=== PATIENT | female | born 1940 | race Caucasian/White ===

== ENCOUNTER 2019-08-02 10:07 | Outpatient (CLI) | payer MEDICARE, OTHER, SELFPAY ==
--- NOTE | 2019-08-02 10:15 | USCV_ITS ---
Victoria Villa Age: 79 Gender: F : 1940 Exam Date: 08/02/2019 10:21 Ordering Phys: Tamara Dominguez MD ([email or web address]) Technologist: Angel Roth [place] [facility] [place]: STENOSIS Risk Factors: Previous Vascular Surgery: Right Brachial BP: / Left Brachial BP: / Right Left Velocity (cm/s) Spectral Plaque Velocity (cm/s) Spectral Plaque Syst/Diast Broadening Syst/Diast Broadening 63.50/ 20.60 Prox CCA 101.90/ 22.00 47.80/ 11.80 Mid CCA 83.20 / 20.80 46.50/ 9.30 Distal CCA 94.70 / 19.80 232.45/45.60 Prox ICA 113.70/ 20.40 185.15/27.40 Mid ICA 93.60 / 26.40 109.95/28.00 Distal ICA 104.20/ 18.50 224.10 ECA 179.90 4.87 ICA/CCA 1.37 Antegrade Vertebral Antegrade 40.80/ 10.60 cm/s 84.90/ 19.80 cm/s Tri Subclavian Tri 225.7 185.5 0 0 FINDINGS Moderate to heavy heterogeneous plaques at the right bifurcation and internal carotid artery Moderate heterogeneous plaques of the left bifurcation and internal carotid artery. Elevated velocity in the right external carotid artery Antegrade flow in the vertebral arteries bilaterally CONCLUSIONS Moderate to heavy heterogeneous plaques at the right bifurcation and internal carotid artery with velocity elevation consistent with 50-79% stenosis. Moderate heterogeneous plaques of the left bifurcation and internal carotid arterywith velocity elevation consistent with 16-49% stenosis. Elevated velocity in the external carotid artery on the right side, suggestive of hemodynamically significant stenosis. Compared to the previous study from July 2018, there is some worsening of the stenosis on the right side Consider CTA to better evaluate the neck arteries Dr Tamara Dominguez MD [facility] (Electronically Signed) Final Date: 03 August 2019 08:43 S
== END 2019-08-02 10:08 | disposition home or self-care (01) ==
LOC: US 10:08
PROVIDERS: PCP Family Medicine; Visit Provider Internal Medicine Cardiovascular Disease
DX: I65.23 Occlusion and stenosis of bilateral carotid arteries
CPT/HCPCS: 93880

== ENCOUNTER 2019-08-15 13:11 | Outpatient (CLI) | payer MEDICARE, OTHER, SELFPAY ==
[2019-08-15 13:53] LABS: Blood Urea Nitrogen 41 mg/dL (8-23)
== END 2019-08-15 13:12 | disposition home or self-care (01) ==
LOC: RADWPI 13:15
PROVIDERS: Family Provider Family Medicine; PCP Family Medicine; Visit Provider Internal Medicine Cardiovascular Disease
DX: I65.23 Occlusion and stenosis of bilateral carotid arteries (principal)
CPT/HCPCS: 82565; 84520

== ENCOUNTER 2020-01-22 08:24 | Outpatient (CLI) | payer MEDICARE, OTHER, SELFPAY ==
--- NOTE | 2020-01-22 08:30 | MM_ITS ---
WS: [id number] BILATERAL DIGITAL DIAGNOSTIC MAMMOGRAM MAMMOGRAPHY WITH CAD CLINICAL INFORMATION: N63.10 - Unspecified lump in the right breast, unspecified quadran COMPARISON: Mammogram screening and PET/CT January 06, 2020 TECHNIQUE: Bilateral CC, MLO, and ML views. FINDINGS: Scattered fibroglandular densities bilaterally. 2 ovoid lesions in the upper outer right breast and a single ovoid lesion left breast at the 12:00 position. These correspond to the findings in the prior PET/CT. Right-sided nodules FDG avid on the PET/CT. Ultrasound is pending. A few punctate calcificat ions. ULTRASOUND BREAST BILATERAL TECHNIQUE: Ultrasound bilateral breast focused area of concern. CLINICAL INFORMATION: N63.10 - Unspecified lump in the right breast, unspecified quadrant COMPARISON: None. FINDINGS: RIGHT: 2 solid lesions in the right breast, 1 at the 9:00 position and one at the 10:00 position suspicious for neoplasm. Irregular solid lesion at the 9:00 position 3 cm from the nipple measuring 1.0 x 0.6 0.7 cm Additional solid suspicious right breast lesion at 10:00 position 3 cm from the nipple measuring 1.5 x 0.7 x 1.2 cm Several cysts right breast. Complex cyst at the 9:00 position measuring 9.6 x 1.0 cm. Additional smal ler cyst measuring 7 mm at the 9:00 position. LEFT BREAST: Incidental cyst in the 12:00 position measuring 10 mm. Small hypoechoic lesion near the areola measur ing 4 x 5 mm nonspecific but may represent a small nodule or complex cyst. MM/[place] [id number] IMPRESSION: BI-RADS: 5-Highly Suggestive of Malignancy FOLLOW UP: US Guided Biopsy Recommended RECOMMEND ULTRASOUND-GUIDED BIOPSY OF THE 2 SOLID SUSPICIOUS RIGHT BREAST LESIO NS. RECOMMEND 6 MONTH FOLLOW-UP LEFT DIAGNOSTIC MAMMOGRAPHY AND ULTRASOUND OF THE T INY HYPOECHOIC LEFT BREAST LESION NEAR THE AREOLA MEASURING 4-5 MM
--- NOTE | 2020-01-22 09:00 | US_ITS ---
WS: [id number] BILATERAL DIGITAL DIAGNOSTIC MAMMOGRAM MAMMOGRAPHY WITH CAD CLINICAL INFORMATION: N63.10 - Unspecified lump in the right breast, unspecified quadran COMPARISON: Mammogram screening and PET/CT January 06, 2020 TECHNIQUE: Bilateral CC, MLO, and ML views. FINDINGS: Scattered fibroglandular densities bilaterally. 2 ovoid lesions in the upper outer right breast and a single ovoid lesion left breast at the 12:00 position. These correspond to the findings in the prior PET/CT. Right-sided nodules FDG avid on the PET/CT. Ultrasound is pending. A few punctate calcificat ions. ULTRASOUND BREAST BILATERAL TECHNIQUE: Ultrasound bilateral breast focused area of concern. CLINICAL INFORMATION: N63.10 - Unspecified lump in the right breast, unspecified quadrant COMPARISON: None. FINDINGS: RIGHT: 2 solid lesions in the right breast, 1 at the 9:00 position and one at the 10:00 position suspicious for neoplasm. Irregular solid lesion at the 9:00 position 3 cm from the nipple measuring 1.0 x 0.6 0.7 cm Additional solid suspicious right breast lesion at 10:00 position 3 cm from the nipple measuring 1.5 x 0.7 x 1.2 cm Several cysts right breast. Complex cyst at the 9:00 position measuring 9.6 x 1.0 cm. Additional smal ler cyst measuring 7 mm at the 9:00 position. LEFT BREAST: Incidental cyst in the 12:00 position measuring 10 mm. Small hypoechoic lesion near the areola measur ing 4 x 5 mm nonspecific but may represent a small nodule or complex cyst. US/US breast BI limited* [id number] IMPRESSION: BI-RADS: 5-Highly Suggestive of Malignancy FOLLOW UP: US Guided Biopsy Recommended RECOMMEND ULTRASOUND-GUIDED BIOPSY OF THE 2 SOLID SUSPICIOUS RIGHT BREAST LESIO NS. RECOMMEND 6 MONTH FOLLOW-UP LEFT DIAGNOSTIC MAMMOGRAPHY AND ULTRASOUND OF THE T INY HYPOECHOIC LEFT BREAST LESION NEAR THE AREOLA MEASURING 4-5 MM
== END 2020-01-22 08:25 | disposition home or self-care (01) ==
LOC: RADSHAW 08:27
PROVIDERS: Family Provider Family Medicine; PCP Family Medicine; Visit Provider Surgery
DX: N63.15 Unspecified lump in the right breast, overlapping quadrants (principal); N63.25 Unspecified lump in the left breast, overlapping quadrants
CPT/HCPCS: 76642; 77066

== ENCOUNTER 2020-01-23 07:09 | Outpatient (CLI) | payer MEDICARE, OTHER, SELFPAY ==
--- NOTE | 2020-01-23 08:45 | US_ITS ---
WS: [id number] ULTRASOUND-GUIDED RIGHT BREAST BIOPSY x 2 HISTORY: N63.10 - Unspecified lump in the right breast, unspecified quadrant COMPARISON: 01/22/2020 and 09/28/2007. Procedure, risks and complications are explained to the patient. Medications are reviewed. Consent is obtained. There are 2 suspicious masses in the RIGHT breast. These were PET/CT positive. First lesion at 10:00, 3 cm from the nipple. Second lesion at 9:00, 3 cm from the nipple. Skin is cleansed with ChloraPrep and anesthetized with 1% buffered lidocaine. Small dermatome termina te. Under sterile conditions each mass is biopsied with a 14-gauge Achieve needle. Multiple core biop sies were performed of the 10:00 mass. Only 2 biopsies performed of the 9:00 mass due to significant bleeding which was difficult to stop. After the bleeding the mass was very poorly visualized and diff icult to identify with certainty. Material placed in formalin and sent to pathology for review. Breast tissue marker (Bard ultrasound enhanced ribbon): Clip is LEFT within the lesion at 10:00. Unab le to identify the lesion at 9:00 after the bleeding. No clip was LEFT in the 9:00 lesion. Patient left the radiology suite with no complications. Patient is instructed to return to [facility] [place] [facility] or [facility] with any concerns. US/[place] [id number] IMPRESSION: 1. Uncomplicated core needle biopsy RIGHT breast 10:00 mass, 3 cm from the nip ple. PATHOLOGY: Mildly differentiated invasive ductal carcinoma, foamy gland variant . Additional ancillary studies will be performed. RECOMMENDATION: Follow-up with oncology and surgery. 2. Uncomplicated core needle biopsy RIGHT breast 9:00 mass, 3 cm from the nippl e. PATHOLOGY: Moderately differentiated invasive ductal carcinoma. Ancillary studi es will be performed. RECOMMENDATION: Follow-up with oncology and surgery.
[2020-01-29 13:08] LABS: Miscellaneous Test See Scanned Lab Rpt
== END 2020-01-23 07:10 | disposition home or self-care (01) ==
PROVIDERS: PCP Family Medicine; Visit Provider Surgery
DX: N63.11 Unspecified lump in the right breast, upper outer quadrant (principal); N63.15 Unspecified lump in the right breast, overlapping quadrants; C50.411 Malignant neoplasm of upper-outer quadrant of right female breast; C50.811 Malignant neoplasm of overlapping sites of right female breast
CPT/HCPCS: 19083; 19084; 88305

== ENCOUNTER 2020-01-30 10:01 | Outpatient (CLI) | payer MEDICARE, OTHER, SELFPAY ==
--- NOTE | 2020-02-01 11:23 | ONC CON_ITS ---
Dr. Scott New Patient Note Patient: Victoria Villa Unit #: [id number]: 1940 Dicatated By: Kim Scott M.D.Date of Visit: Jan 30, 2020 Onc MED New Patient/Consult Referring Physician: Dr. DOUG GARCIA M.D. History of Present Illness: Ms. Victoria Villa, is a 79-year-old female with history of progressive shortness of breath, Underwent chest x-ray which was abnormal So underwent CT scan of chest on December 29, 2019 which showed numerous bilateral pulmonary nodules with the largest identified in the left lower lobe measuring 1.5 cm and a large subcarinal lymph node measuring 2.3 x 4 cm and fullness in the superior mediastinum to the right of midline may represent adenopathy. And also seen a coarsely calcified left thyroid nodule measuring 2.5 x 3.0 x 2.9 cm no hepatic abnormality mentioned subsequently patient underwent CT PET scan on January 06, 2020 which showed 2 lateral right breast solid nodules measuring 1.2 and 1.3 cm with SUV up to 5.1 and there is bilateral clusters of lymph nodes in the cervical level 3 and 4 and supraclavicular territories with SUV up to 12.5 on the right and 10.8 on the left. There are multiple bilateral pulmonary nodules with FDG activity consistent with metastatic disease. The index nodule in the posterior left lower lobe measuring 1.4 cm SUV of 8.4. There is a paratracheal subaortic subcarinal and bilateral hilar lymphadenopathy and dominant lymph node in the subcarinal territory measuring 3.1 x 4.2 cm with SUV of 20. There is intense activity in the fundus and the body of stomach which may be physiological or malignant. And left thyroid lobe calcified nodule has SUV of 7.1, strongly suggesting malignancy., Patient was referred to surgery for evaluation patient underwent mammogram on January 22, 2020 which showed 2 solid lesions in the right breast, 1 at 9 o'clock position and another one at 10 o'clock position on January 23, 2020 she underwent ultrasound-guided right breast biopsy x2 and pathology report came back mass at 10 o'clock position showed moderately differentiated invasive ductal carcinoma and mass at 9 o'clock position also showed moderately differentiated invasive ductal carcinoma prognostic profile???confirmed ER positive, 99% and MO negative, HER-2/bin negative. Ki-67 4% Patient never had colonoscopy or EGD before, smokes about 2 packs a day for more than 50 years. Denies any history of dysphagia, denies any history of hemoptysis or hematemesis, denies any history of nausea vomiting, denies any fever chills, denies any bony pains, denies any mental status changes, denies any weight loss but now with progressive mild to moderate shortness of breath on exertion, fatigue for the last couple of months. Past Medical History: Ms. Villa's medical history consists of arteriosclerotic heart disease, carotid stenosis, chronic kidney disease, hyperlipidemia, obstructive sleep apnea, peripheral artery disease, and type II diabetes. Past Surgical History: Ms. Villa's surgical/procedural history consists of cholecystectomy, coronary artery stent, and hernia repair. Medications: Aspirin Adult Low Dose 1 Tablet (of 81 mg) Tablet, enteric coated Oral daily, Cholecalciferol (25 mcg ) Oral daily, Fenofibrate 1 Tablet (of 54 mg) Oral daily, Flonase 1 Vining(s) (of 50 mcg/act) Suspension Nasal daily, Glimepiride 1 Tablet (of 1 mg) Oral daily, Lisinopril 1 Tablet (of 10 mg) Oral daily, Metoprolol Tartrate 1 Tablet (of 25 mg) Oral b.i.d., Simvastatin 1 Tablet (of 40 mg) Oral daily Allergies: Penicillins Social History: Ms. Villa is . She is a daily smoker who smokes 2.0 packs/day. She has no history of drinking. Family History: Ms. Villa's mother at age 75: colon cancer. Ms. Villa's father at age 74: type II diabetes. Review Of Symptoms: Constitutional - Appetite is good and weight is stable. No fever, night sweats, or hot flashes. Energy level is poor, ENMT - No sinus congestion/drainage. No mouth sores. No sore throat or difficulty swallowing, Endocrine - , Hematologic/Lymphatic - No abnormal bruising or bleeding, Respiratory - Positive for shortness of breath. Positive for cough. Positive for pleuritic pain, no hemoptysis, Cardiovascular - No angina pain. No palpitations, Gastrointestinal - No nausea or vomiting. No heartburn or acid reflux. Positive for diarrhea, no constipation. No blood in the stool or black stools, Genitourinary (F) - No dysuria or hematuria. No urinary frequency. No urgency Positive for incontinence, Musculoskeletal - No joint or bone pain, Neurologic - Positive for headache no dizziness. No numbness or tingling. No other focal neurologic symptoms, Psychiatric - Positive for anxiety and depression. No insomnia. Vital Signs: Most recent vitals are not available for this patient. Performance Status: 1 - No physically strenuous activity, but ambulatory and able to carry out light or sedentary work (e.g. office work, light house work). (ECOG) Physical Examination: ENMT - No mouth sores, no thrush, no jaundice bilateral deep cervical/supraclavicular lymph node palpable, nontender, but no axillary lymphadenopathy, Respiratory - Poor air entry, with mild wheezing, Cardiovascular - Regular rate and rhythm of heart, Abdomen - Soft, bowel sounds present, Extremities - Trace edema bilaterally. Lab/Imaging: Most recent lab results are not available for this patient. Impression: 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 And coarsely calcified left thyroid nodule measuring 2.5 x 3 cm and no hepatic abnormality mentioned CT PET scan done on January 06, 2020 showed FDG positive right breast nodules Intense proximal gastric activity, gastric wall thickening could be physiologic further evaluation recommended Bilateral FDG positive cervical and supraclavicular lymph nodes consistent with metastatic disease Calcified left thyroid nodule is FDG positive likely malignant Bilateral malignant pulmonary nodules Extensive malignant mediastinal lymphadenopathy. Longstanding history of smoking 2 packs a day for more than 50 years, still active History of colonoscopy done in 2017, History of arterial bypass of lower limb. History of coronary artery disease status post stent Plan: Discussed with patient regarding her disease status and CT scan of chest and CT PET scan findings, clinically it appears we are dealing with more than one primaries, as right breast cancer has been confirmed with ultrasound right breast biopsy done on January 23, 2020 with the PET scan shows no right axillary lymphadenopathy, metastatic disease from right breast is less likely but cannot be ruled out, prognostic profiling shows strongly ER positive disease but MO negative and HER-2/bin negative and other concern is FDG positive thyroid nodule and bilateral cervical/supraclavicular lymphadenopathy and extensive bilateral pulmonary nodules along with significant mediastinal lymphadenopathy, so at this point , we will refer her to ENT for thyroid nodule FNA and cervical or supraclavicular lymph node biopsy and also refer her to pulmonology for transbronchial biopsy and then reviewed the pathology if it confirm metastatic breast cancer then will consider palliative hormonal therapy on the other hand if it confirm metastatic thyroid malignancy or other malignancy then will plan accordingly. Discussed with patient in detail and she expressed full understanding and we will see her back after ENT and pulmonary evaluation Patient was advised to quit smoking and was offered any assistance she may need. As far as diagnosis related anxiety is concerned,, patient was reassured and will also consider Ativan on as-needed basis. Patient has chronic cough and she is attributing this to her chronic smoking but patient is on lisinopril for many years, she was advised to discuss with PMD regarding if it is LYDIA inhibitor related chronic cough, Signed By: Kmi Scott M.D. <<Signature on File>>
== END 2020-01-30 10:02 | disposition home or self-care (01) ==
LOC: ONCMED 10:04
PROVIDERS: PCP Family Medicine; Visit Provider Internal Medicine Hematology & Oncology
DX: C50.411 Malignant neoplasm of upper-outer quadrant of right female breast (principal); Z17.0 Estrogen receptor positive status [ER+]; R91.8 Other nonspecific abnormal finding of lung field; E04.1 Nontoxic single thyroid nodule; R59.0 Localized enlarged lymph nodes; R05 Cough; I25.10 Atherosclerotic heart disease of native coronary artery without angina pectoris; F17.210 Nicotine dependence, cigarettes, uncomplicated; Z95.5 Presence of coronary angioplasty implant and graft; Z79.899 Other long term (current) drug therapy
CPT/HCPCS: 99203

== ENCOUNTER 2020-02-12 10:53 | Outpatient (CLI) | payer MEDICARE, OTHER, SELFPAY ==
--- NOTE | 2020-02-12 11:00 | USCV_ITS ---
Victoria Villa Age: 79 Gender: F : 1940 Exam Date: 02/12/2020 11:11 Ordering Phys: Tamara Dominguez MD ([email or web address]) Technologist: Nicole Agarwal [place] [facility] [place] F/U CAROTID [place] Risk Factors: Previous Vascular Surgery: Right Brachial BP: / Left Brachial BP: / Right Left Velocity (cm/s) Spectral Plaque Velocity (cm/s) Spectral Plaque Syst/Diast Broadening Syst/Diast Broadening 76.00/ 17.10 Prox CCA 123.40/ 19.10 82.00/ 12.80 Mid CCA 122.30/ 22.30 67.50/ 14.50 Distal CCA 101.20/ 21.00 264.10/77.70 Prox ICA 132.10/ 24.90 216.50/33.10 Mid ICA 117.50/ 33.60 82.80/ 22.30 Distal ICA 126.10/ 24.90 244.10 ECA 229.20 3.22 ICA/CCA 1.07 Antegrade Vertebral Antegrade 41.00/ 14.50 cm/s 93.60/ 22.90 cm/s Tri Subclavian Tri 170.4 230.3 0 0 FINDINGS Moderate to heavy heterogeneous plaques of the right bifurcation and internal carotid artery Moderate to heavy heterogeneous plaques of the left bifurcation and internal carotid artery Antegrade flow in the vertebral arteries bilaterally Elevated velocities in the external carotid arteries bilaterally Abnormal Doppler waveforms in the right vertebral artery CONCLUSIONS Moderate to heavy heterogeneous plaques at the carotid bifurcations and internal carotid arteries bilaterally, suggestive of 50 to 79% stenosis. Elevated velocities in the external carotid arteries bilaterally, suggestive of hemodynamically significant stenosis. Abnormal Doppler waveforms in the right vertebral artery, may suggest high-grade proximal stenosis in the artery Consider CTA, to better evaluate the arch vessels Compared to the study from 08/02/2019, there is some progression of disease on the left side Dr Tamara Dominguez MD [facility] (Electronically Signed) Final Date: 13 February 2020 09:40 S
== END 2020-02-12 10:54 | disposition home or self-care (01) ==
LOC: US 10:54
PROVIDERS: PCP Family Medicine; Visit Provider Internal Medicine Cardiovascular Disease
DX: I65.23 Occlusion and stenosis of bilateral carotid arteries (principal)
CPT/HCPCS: 93880

== ENCOUNTER → 2020-03-01 10:39 | Outpatient (BNVA) | payer MEDICARE, OTHER, SELFPAY | PROVIDERS: PCP Family Medicine; Visit Provider Internal Medicine Pulmonary Disease | DX: R06.02 Shortness of breath (principal) | CPT/HCPCS: 87635 ==

== ENCOUNTER 2020-03-06 13:04 | Outpatient (CLI) | payer MEDICARE, OTHER, SELFPAY ==
--- NOTE | 2020-03-06 14:24 | PFTS_ITS ---
Date of Study:03/06/2020 Date of Dictation: 03/18/2020 MECHANICS: Forced vital capacity (FVC) is normal. Forced expiratory volume in one second (FEV1) is normal. FEV1/FVC is reduced. There is no significant response to bronchodilators. FLOW VOLUME LOOP: Scooping of end expiratory limb suggestive of airway obstruction . LUNG VOLUMES: Total lung capacity (TLC) is reduced. Residual volume (RV) is severely reduced 14%. DIFFUSING CAPACITY FOR CARBON MONOXIDE: Moderately reduced 56% . INTERPRETATION: The spirometry is suggestive of mild obstructive airway disease. Lung volumes are significantly reduced suggestive of severe restriction. Moderately reduced gas transfer. Please correlate clinically MTDD
[2020-03-06 15:10] VITALS: O2SAT 91; O2SAT 93
--- NOTE | 2020-03-06 15:33 | PFTS_ITS ---
Date of Study:03/06/20 Date of Dictation: MECHANICS: Forced vital capacity (FVC) is . Forced expiratory volume in one second (FEV1) is . FEV1/FVC is . FLOW VOLUME LOOP: . LUNG VOLUMES: Total lung capacity (TLC) is . Residual volume (RV) is . DIFFUSING CAPACITY FOR CARBON MONOXIDE: . INTERPRETATION: The pulmonary function tests are . mechanics and lung volumes. Gas exchange (DLCO) is . MTDD
== END 2020-03-06 13:05 | disposition home or self-care (01) ==
LOC: RT 13:07
PROVIDERS: PCP Family Medicine; Visit Provider Internal Medicine Pulmonary Disease
DX: R06.02 Shortness of breath (principal)
CPT/HCPCS: 94060; 94726; 94729; J7611

== ENCOUNTER 2020-03-08 08:18 | Outpatient (CLI) | payer MEDICARE, OTHER, SELFPAY ==
[2020-03-08 09:15] LABS: Basophils # 0.1 10^3/uL (0.0-0.1); Eosinophils # 0.2 10^3/uL (0.0-0.8); Eosinophils % 2.4 %; Hematocrit 28.6 % (37.0-47.0); Hemoglobin 9.1 g/dL (11.5-15.3); Lymphocytes # 1.3 10^3/uL (0.8-4.8); Lymphocytes % 15.5 %; Mean Corpuscular HGB Conc 31.8 g/dL (30.0-36.0); Mean Corpuscular Hemoglobin 33.2 pg (28.0-34.0); Mean Corpuscular Volume 104.4 fL (81-99); Mean Platelet Volume 9.8 fL (7.4-10.4); Monocytes # 0.5 10^3/uL (0.2-0.9); Monocytes % 6.3 %; Neutrophils # 6.24 10^3/uL (1.8-7.7); Neutrophils % 74.4 %; Nucleated Red Blood Cells % 0 %; Platelet Count 431 10^3/cmm (130-400); Red Blood Count 2.74 10^6/uL (4.1-5.3); Red Cell Distribution Width 14.2 % (12.1-15.1); White Blood Count 8.4 10^3/uL (4.0-10.0)
[2020-03-08 09:35] LABS: Alanine Aminotransferase 6 U/L (0-33); Albumin Level 3.7 g/dL (3.5-5.2); Alkaline Phosphatase 68 IU/L (35-105); Anion Gap 13.2 (5-19); Aspartate Amino Transferase 12 U/L (0-32); Blood Urea Nitrogen 16 mg/dL (8-23); Calcium 8.7 mg/dL (8.5-10.5); Carbon Dioxide 26 mmol/L (22-29); Chloride 100 mmol/L (98-107); Glucose 109 mg/dL (65-115); Osmolality Calculated 282 mOsm/kg (285-295); Potassium 4.2 mmol/L (3.5-5.1); Sodium 135 mmol/L (136-145); Total Bilirubin 0.2 mg/dL (0.15-1.2); Total Protein 6.7 g/dL (6.6-8.7)
== END 2020-03-08 08:19 | disposition home or self-care (01) ==
LOC: ONCMED 08:20
PROVIDERS: PCP Family Medicine; Visit Provider Internal Medicine Hematology & Oncology
DX: C50.411 Malignant neoplasm of upper-outer quadrant of right female breast (principal); Z17.0 Estrogen receptor positive status [ER+]
CPT/HCPCS: 80053; 85025

== ENCOUNTER 2020-03-12 05:49 | Outpatient (CLI) | payer MEDICARE, OTHER, SELFPAY ==
[2020-03-12 10:50] LABS: Ferritin 50 ng/mL (15-150); Iron 30 ug/dL (37-145); Percent Saturation 9.4 % (20-50); Total Iron Binding Capacity 319 mcg/dl; Unsaturated Iron Binding 289 ug/dL (112-347)
[2020-03-12 11:06] LABS: Vitamin B12 421 pg/mL (232-1245)
--- NOTE | 2020-03-12 16:12 | ONC FU_ITS ---
Dr. Scott follow up note Patient: Victoria Villa Unit #: [id number]: [id number] Dicatated By: Kim Scott M.D.Date of Visit:Mar 12, 2020 Onc Med Follow-up/Prog Note History of Present Illness: Ms. Victoria Villa, is a 79-year-old female with history of progressive shortness of breath, Underwent chest x-ray which was abnormal So underwent CT scan of chest on December 29, 2019 which showed numerous bilateral pulmonary nodules with the largest identified in the left lower lobe measuring 1.5 cm and a large subcarinal lymph node measuring 2.3 x 4 cm and fullness in the superior mediastinum to the right of midline may represent adenopathy. And also seen a coarsely calcified left thyroid nodule measuring 2.5 x 3.0 x 2.9 cm no hepatic abnormality mentioned subsequently patient underwent CT PET scan on January 06, 2020 which showed 2 lateral right breast solid nodules measuring 1.2 and 1.3 cm with SUV up to 5.1 and there is bilateral clusters of lymph nodes in the cervical level 3 and 4 and supraclavicular territories with SUV up to 12.5 on the right and 10.8 on the left. There are multiple bilateral pulmonary nodules with FDG activity consistent with metastatic disease. The index nodule in the posterior left lower lobe measuring 1.4 cm SUV of 8.4. There is a paratracheal subaortic subcarinal and bilateral hilar lymphadenopathy and dominant lymph node in the subcarinal territory measuring 3.1 x 4.2 cm with SUV of 20. There is intense activity in the fundus and the body of stomach which may be physiological or malignant. And left thyroid lobe calcified nodule has SUV of 7.1, strongly suggesting malignancy., Patient was referred to surgery for evaluation patient underwent mammogram on January 22, 2020 which showed 2 solid lesions in the right breast, 1 at 9 o'clock position and another one at 10 o'clock position on January 23, 2020 she underwent ultrasound-guided right breast biopsy x2 and pathology report came back mass at 10 o'clock position showed moderately differentiated invasive ductal carcinoma and mass at 9 o'clock position also showed moderately differentiated invasive ductal carcinoma prognostic profile???confirmed ER positive, 99% and MS negative, HER-2/bin negative. Ki-67 4% Patient never had colonoscopy or EGD before, smokes about 2 packs a day for more than 50 years. Denies any history of dysphagia, denies any history of hemoptysis or hematemesis, denies any history of nausea vomiting, denies any fever chills, denies any bony pains, denies any mental status changes, denies any weight loss but now with progressive mild to moderate shortness of breath on exertion, fatigue for the last couple of months. As well CT PET scan showed increased uptake in thyroid as well as extensive bilateral cervical lymphadenopathy/supraclavicular lymphadenopathy, bilateral pulmonary nodules with FDG activity and paratracheal subaortic and bilateral hilar lymphadenopathy and left thyroid lobe calcified nodule with SUV of 7.1, she was referred to ENT Dr. 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 Came for follow-up, complaining of generalized weakness and fatigue otherwise no hemoptysis or hematemesis, no dysphagia, no hemoptysis or hematemesis, no fever chills, no diarrhea or constipation, no jaundice, no headaches blurred vision double vision. As per patient she underwent FNA of thyroid as well as left supraclavicular lymph node but Dr. Hutchinson's office said only FNA thyroid was done, could not contact Dr. Hutchinson as he was in OR today. She was also referred to pulmonology for bronchoscopy and transbronchial biopsy by Dr. Friedman wanted to review FNA thyroid and supra clavicular lymph node reports as if taken from metastatic breast cancer then there is no need for transbronchial. Medications: 24HR Allergy Relief 1 Tablet (of 180 mg) Oral daily PRN, Aspirin Adult Low Dose 1 Tablet (of 81 mg) Tablet, enteric coated Oral daily, Cholecalciferol (25 mcg ) Oral daily, Fenofibrate 1 Tablet (of 54 mg) Oral daily, Flonase 1 [place](s) (of 50 mcg/act) Suspension Nasal daily, Glimepiride 1 Tablet (of 1 mg) Oral daily, Lisinopril 1 Tablet (of 20 mg) Oral daily, Metoprolol Tartrate 1 Tablet (of 25 mg) Oral b.i.d., Simvastatin 1 Tablet (of 40 mg) Oral daily Allergies: Penicillins Review of Systems: Constitutional - Appetite is good and weight is stable. No fever, night sweats, or hot flashes. Energy level is poor, ENMT - No sinus congestion/drainage. No mouth sores. No sore throat or difficulty swallowing, Hematologic/Lymphatic - No abnormal bruising or bleeding, Respiratory - Positive for shortness of breath. Positive for cough. Positive for pleuritic pain, no hemoptysis, Cardiovascular - No angina pain. No palpitations, Gastrointestinal - No nausea or vomiting. No heartburn or acid reflux. Positive for diarrhea, no constipation. No blood in the stool or black stools, Genitourinary (F) - No dysuria or hematuria. No urinary frequency. No urgency Positive for incontinence, Musculoskeletal - No joint or bone pain, Neurologic - Positive for headache no dizziness. No numbness or tingling. No other focal neurologic symptoms, Psychiatric - Positive for anxiety and depression. No insomnia. Vital Signs: Performed on Mar 12, 2020 09:05 Height - 64 in Weight - 170.2 lbs (HIGH) BSA - 1.83 sq.m BMI - 29.21 Temperature - 98.4 F Pulse - 94 /min Respiration - 16 /min BP - 109/61 mm(hg) O2 Sat - 100 % Pain - 3 Performance Status: 1 - No physically strenuous activity, but ambulatory and able to carry out light or sedentary work (e.g. office work, light house work). (ECOG) Physical Examination: Respiratory - Lungs are clear to auscultation, Cardiovascular - Regular rate and rhythm of heart, Gastrointestinal - Soft, bowel sounds present, Extremities - No visible edema. Lab/Imaging: Most recent lab results are not available for this patient. 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 And coarsely calcified left thyroid nodule measuring 2.5 x 3 cm and no hepatic abnormality mentioned CT PET scan done on January 06, 2020 showed FDG positive right breast nodules Intense proximal gastric activity, gastric wall thickening could be physiologic further evaluation recommended Bilateral FDG positive cervical and supraclavicular lymph nodes consistent with metastatic disease Calcified left thyroid nodule is FDG positive likely malignant Bilateral malignant pulmonary nodules Extensive malignant mediastinal lymphadenopathy. Longstanding history of smoking 2 packs a day for more than 50 years, still active History of colonoscopy done in 2017, History of arterial bypass of lower limb. History of coronary artery disease status post stent Plan: Discussed with patient regarding her labs white blood count 8.4 hemoglobin 9.1 hematocrit 28.6 platelets 431,000 CMP within normal limits and for FNA thyroid which was done on February 23, 2020 Clinically, patient doing reasonably well with no new signs symptom except persistent generalized weakness and fatigue which could be multifactorial including mild to moderate anemia or extensive malignancy, will check iron studies B12 folic acid level today and also discussed with Dr. Hutchinson regarding FNA supraclavicular lymph node, if is not done in that case we will prefer lymph node biopsy rather FNA to obtain generous tissue for proper testing to confirm metastatic breast cancer versus second or other primary. Patient will return to clinic in 2 weeks with CBC. Signed By: Kim Scott M.D. <<Signature on File>>
== END 2020-03-12 05:50 | disposition home or self-care (01) ==
LOC: ONCMED 05:52
PROVIDERS: PCP Family Medicine; Visit Provider Internal Medicine Hematology & Oncology
DX: C50.411 Malignant neoplasm of upper-outer quadrant of right female breast (principal); C78.02 Secondary malignant neoplasm of left lung; C78.01 Secondary malignant neoplasm of right lung; C77.1 Secondary and unspecified malignant neoplasm of intrathoracic lymph nodes; R59.0 Localized enlarged lymph nodes; R53.1 Weakness; R53.83 Other fatigue; E04.1 Nontoxic single thyroid nodule; I25.10 Atherosclerotic heart disease of native coronary artery without angina pectoris; Z17.0 Estrogen receptor positive status [ER+]; Z95.5 Presence of coronary angioplasty implant and graft; Z87.891 Personal history of nicotine dependence
CPT/HCPCS: 36415; 82607; 82728; 83540; 83550; 85045; 99214

== ENCOUNTER 2020-04-11 09:55 | Outpatient (CLI) | payer MEDICARE, OTHER, SELFPAY ==
--- NOTE | 2020-04-11 09:57 | NM_ITS ---
WS: [id number] NUCLEAR MEDICINE 24 HOUR I-123 THYROID UPTAKE INDICATION: Single thyroid nodule nontoxic TECHNIQUE: I-123 24 HOUR THYROID UPTAKE WITH PLANAR IMAGING. 120 UCI ANTONI 123 COMPARISON: PET/CT January 06, 2020 FINDINGS: Densely calcified a few reactive left thyroid nodule seen on the prior PET/CT. Reported rec ent thyroid biopsy was performed and negative for malignancy. Slightly heterogeneous bilateral thyroid uptake on the planar imaging. Cold defect in the left thyroi d on the CUBAN imaging likely corresponds to the densely calcified nodule in the prior PET/CT. No other focal hot or cold defects. 24-hour thyroid uptake 21.3% within normal limits. NORMAL 24H THRYOID UPTAKE 8-35% NM/NM thyroid uptake multi [id number] IMPRESSION: 1. Normal 24-hour thyroid uptake 21.3% within normal limits. 2. Focal cold defect in the left thyroid likely corresponds to the densely ousmane cified thyroid nodule seen on the prior PET/CT. This has reportedly been recent ly sampled. If not, recommend further evaluation with ultrasound-guided FNA. 3. No other significant findings.
== END 2020-04-11 09:56 | disposition home or self-care (01) ==
LOC: NM 09:55
PROVIDERS: PCP Family Medicine; Visit Provider Specialist
DX: E04.1 Nontoxic single thyroid nodule (principal)
CPT/HCPCS: 78014; A9516

== ENCOUNTER 2020-04-12 09:45 | Outpatient (CLI) | payer MEDICARE, OTHER, SELFPAY | END 2020-04-12 09:46 | disposition home or self-care (01) | LOC: NM 09:47 | PROVIDERS: PCP Family Medicine; Visit Provider Specialist | DX: R59.0 Localized enlarged lymph nodes (principal) | CPT/HCPCS: 87635 ==

== ENCOUNTER 2020-04-15 11:35 | Outpatient (CLI) | payer MEDICARE, OTHER, SELFPAY ==
[2020-04-15 12:17] LABS: Basophils # 0.1 10^3/uL (0.0-0.1); Basophils % 0.9 %; Eosinophils # 0.2 10^3/uL (0.0-0.8); Eosinophils % 2.8 %; Hematocrit 30.3 % (37.0-47.0); Hemoglobin 9.6 g/dL (11.5-15.3); Lymphocytes # 1.2 10^3/uL (0.8-4.8); Lymphocytes % 16.5 %; Mean Corpuscular HGB Conc 31.7 g/dL (30.0-36.0); Mean Corpuscular Hemoglobin 32.3 pg (28.0-34.0); Mean Platelet Volume 9.9 fL (7.4-10.4); Monocytes # 0.5 10^3/uL (0.2-0.9); Monocytes % 7.1 %; Neutrophils # 5.43 10^3/uL (1.8-7.7); Neutrophils % 72.4 %; Nucleated Red Blood Cells % 0.3 %; Platelet Count 334 10^3/cmm (130-400); Red Blood Count 2.97 10^6/uL (4.1-5.3); Red Cell Distribution Width 14.3 % (12.1-15.1); White Blood Count 7.5 10^3/uL (4.0-10.0)
[2020-04-15 12:35] LABS: Alanine Aminotransferase 6 U/L (0-33); Albumin Level 3.3 g/dL (3.5-5.2); Alkaline Phosphatase 67 IU/L (35-105); Anion Gap 16.7 (5-19); Aspartate Amino Transferase 12 U/L (0-32); Blood Urea Nitrogen 11 mg/dL (8-23); Calcium 8.6 mg/dL (8.5-10.5); Carbon Dioxide 21 mmol/L (22-29); Chloride 95 mmol/L (98-107); Globulin 3.1 g/dL (1.3-4.6); Glucose 159 mg/dL (65-115); Osmolality Calculated 271 mOsm/kg (285-295); Potassium 3.7 mmol/L (3.5-5.1); Sodium 129 mmol/L (136-145); Total Bilirubin 0.2 mg/dL (0.15-1.2); Total Protein 6.4 g/dL (6.6-8.7)
== END 2020-04-15 11:36 | disposition home or self-care (01) ==
LOC: ONCMED 11:38
PROVIDERS: PCP Family Medicine; Visit Provider Internal Medicine Hematology & Oncology
DX: C50.411 Malignant neoplasm of upper-outer quadrant of right female breast (principal); Z17.0 Estrogen receptor positive status [ER+]
CPT/HCPCS: 80053; 85025

== ENCOUNTER 2020-04-16 05:57 | Day surgery (SDC) | payer MEDICARE, OTHER, SELFPAY ==
[2020-04-15 13:12] VITALS: BMI 27.3
[2020-04-16] VITALS (8 sets, daily range): BP systolic 112–162; BP diastolic 64–85; PULSE 87–106; RESP 14–18; TEMP 36.4–36.7; O2SAT 93–99
--- NOTE | 2020-04-16 06:25 | ANES.PREANE2 ---
Pre-Anesthetic Assessment Pre-Anesthetic Assessment: Height/Weight: Height 1.7 m Weight 79.379 kg Temp Pulse Resp BP Pulse Ox 98 F 87 18 131/64 95 04/16/20 06:13 04/16/20 06:13 04/16/20 06:13 04/16/20 06:13 04/16/20 06:13 Preop Diagnosis: Neck mass Proposed Procedure: Operation Date: 04/16/20 07:00 Proposed Procedures p Excision Neck Mass/Lesion(Not Applicable) - Kemar Hutchinson MD Familial anesthetic complications: Hard to wake up (sleepy after cataract surgery) Was Beta Dahiana taken within 24 hours: Yes Last intake: Intake Last Liquid Date 04/15/20 Last Liquid Time 19:00 Last Solid Date 04/15/20 Last Solid Time 19:00 Social: Social History: Tobacco and No alcohol Exam: Pre-Anes Outpt Exam: alert, oriented x 3, clear to auscultation bilaterally and regular rate & rhythm Airway: Cervical ROM: WNL MP: 4 Dentition: Other (plates) Pulmonary: Pulmonary: COPD, Sleep apnea and SOB CV/HEM: CV/HEM: CAD (stents placed > 1 year ago on aspirin only, no recent chest pains), HTN and PVD : : Chronic renal failuer (stage IV kidney disease) GI: GI: GERD Metabolic: Metabolic: DM and Hyperlipidemia Anesthetic Plan: ASA status: 4 Anesthesia: General Risk of > 500 ml blood loss (7ml/kg in children): No PFSH Anesthesia PFSH: Medical History Abuse of smoked substance ASHD (arteriosclerotic heart disease) Carotid stenosis Chronic kidney disease Diabetes mellitus Essential hypertension Mixed hyperlipidemia DENITA (obstructive sleep apnea) PAD (peripheral artery disease) Surgical History H/O arterial bypass of lower limb H/O colonoscopy 2017 History of ankle surgery fracture repair with hardware History of cholecystectomy History of incisional hernia repair Stented coronary artery Family History Father Bleeding disorder Diabetes Mother Cancer colon and aunt had colon too Other Congestive heart failure Denies family history of Anesthesia complication Social History (Reviewed 02/26/20 @ 15:03 by BASILIO Latham Smoking and tobacco status: current every day smoker cigarettes Packs smoked per day: 2 Years cigarettes smoked: 50 Quit status (tobacco): not considering quitting Second hand smoke exposure: No Smoking risk assessment/counseling performed?: Yes Alcohol intake: never Lives independently: Yes Household members: none Marital status: Single Current occupational status: retired Pets and animals: Yes History of recent travel: No Current gender identity: Female Data Anesthesia Cardiac Studies: No Data to Display
[2020-04-16] MEDS: sodium chloride 0.9% 1,000 ML 30 ML IV (06:30)
[2020-04-16 06:45] LABS: Glucose Point of Care 110 mg/dL (70-110)
--- NOTE | 2020-04-16 06:47 | W.PM.OPSUD ---
Surgery/Procedure H&P Update DATE OF PROCEDURE: April 16, 2020 DATE H&P PERFORMED: 03/25/20 H&P UPDATE INFORMATION: I have reviewed H&P completed within last 30 days, I have examined patient prior to procedure and No changes to prior documentation PREOP DIAGNOSIS: Right Neck mass PRIMARY INDICATION FOR PROCEDURE: Right neck mass - r/o malignancy PLANNED PROCEDURE: Operation Date: 04/16/20 07:00 Proposed Procedures p Excision Neck Mass/Lesion(Not Applicable) - Kemar Hutchinson MD
[2020-04-16] MEDS: clindamycin 600 MG/50 ML PREMIX 100 MG IV (07:30)
[2020-04-16] MEDS: thrombin 5,000 unit SDV 5000 UNIT XX (08:22)
[2020-04-16] MEDS: neomycin-poly-bacitracin oint 28 gm 1 APPLIC TOPICAL (08:31)
--- NOTE | 2020-04-16 08:50 | P.OP_ITS ---
Operative Report Date of procedure: April 16, 2020 Pre-op Diagnosis: Right Neck mass Post-op diagnosis: same Post-op Findings: Matted right supraclavicular mass two fingerbreadths lateral to the clavicular attachment of the sternocleidomastoid muscle Procedure Done: Incisional biopsy of right supraclavicular neck mass Implants: None Specimens removed/disposition: Right supraclavicular neck mass Pathology: none sent Surgeon: Kemar Hutchinson Animal Eviscerator: Marvin Giraldo Anesthesia: General Estimated blood loss (mL): 20 IV fluids (mL): 700 Complications: None Findings: Multiple, hard, matted lymph nodes in the right supraclavicular neck 2 fingerbreadths lateral to the clavicular attachment of the sternocleidomastoid muscle Condition: stable Disposition: PACU Brief History: 79 yo wf with a h/o breast cancer with a right supraclavicular neck mass. The patient and Dr. Scott desire surgical biopsy. Procedure: The patient was identified the preoperative holding area and was taken to the operating room where she was placed on the operating table in the supine position. Anesthesia was obtained with general endotracheal anesthesia and the table was then turned 180 degrees. The Nirvana nerve monitoring system was placed on the patient's right trapezius. The mass was identified in the right supra clavicular neck lateral to the sternocleidomastoid muscle, and an incision was drawn out in a convenient skin crease overlying the mass. This incision was then injected with local anesthesia and the patient was then prepped and draped in the usual sterile fashion. The right neck incision was made with a 15 blade and then using the Nirvana nerve monitoring hemostat, the dissection proceeded into the deep tissues of the neck guided by palpation. The mass was identified on the floor of the neck and was dissected free from the surrounding tissues using the Nirvana nerve monitoring hemostat and bipolar cautery. Hemostasis was achieved with bipolar cautery. Once the mass was excised, hemostasis was achieved with bipolar cautery and Gelfoam soaked in thrombin was placed in the depth of the wound. The outer portion of the wound was dusted with Negro powder, and a small round DERREK drain was placed in the wound and secured in place with 3-0 Prolene sutures. The wound was then closed with interrupted 4-0 Monocryl sutures in the subcu and a running subcuticular 5- 0 Monocryl suture. Final closure was achieved with Dermabond and Steri-Strips. At this point, the procedure was terminated and control of the patient was returned to anesthesia where she underwent an uneventful reversal of anesthesia and extubation and was taken to the recovery room stable condition. There were no operative or anesthetic complications.
[2020-04-16] MEDS: ondansetron 2 mg/ML SDV 2 mL 4 MG IVP (09:31)
--- NOTE | 2020-04-16 21:30 | ANE.PACU2 ---
Inpatient post-anesthesia follow up: Airway intact: Yes Vital signs: Temperature 98.1 F Pulse Rate 96 Respiratory Rate 16 Blood Pressure 112/85 Pulse Oximetry 97 Oxygen Delivery Me thod Nasal Cannula Oxygen Flow Rate 2 Fraction of Inspir ed Oxygen Hydration adequate: Yes Nausea and vomiting: No Pain level: 2 Mental status: Baseline
[2020-04-23 09:57] LABS: PD-L1 (Clone 22C3) by IHC BBPL See Report
== END 2020-04-16 10:26 | disposition home or self-care (01) ==
PROVIDERS: PCP Family Medicine; Visit Provider Specialist
PROC: (CPT 21555; principal; 2020-04-16 07:00)
DX: C76.0 Malignant neoplasm of head, face and neck (principal); E11.22 Type 2 diabetes mellitus with diabetic chronic kidney disease; I12.9 Hypertensive chronic kidney disease with stage 1 through stage 4 chronic kidney disease, or unspecified chronic kidney disease; N18.9 Chronic kidney disease, unspecified; E78.2 Mixed hyperlipidemia; G47.33 Obstructive sleep apnea (adult) (pediatric); Z95.5 Presence of coronary angioplasty implant and graft; Z86.718 Personal history of other venous thrombosis and embolism; F17.210 Nicotine dependence, cigarettes, uncomplicated
CPT/HCPCS: 21555; 12345; 36416; 82962; 88307; 88342; 96374; J2370; J2405; J2704; J2710; J3010; J3490; J7030

== ENCOUNTER 2020-04-18 05:44 | Outpatient (CLI) | payer MEDICARE, OTHER, SELFPAY ==
--- NOTE | 2020-04-18 17:05 | ONC FU_ITS ---
Dr. Scott follow up note Patient: Victoria Villa Unit #: [id number]: [id number] Dicatated By: Kim Scott M.D.Date of Visit:Apr 18, 2020 Onc Med Follow-up/Prog Note History of Present Illness: Ms. Victoria Villa, is a 79-year-old female with history of progressive shortness of breath, Underwent chest x-ray which was abnormal So underwent CT scan of chest on December 29, 2019 which showed numerous bilateral pulmonary nodules with the largest identified in the left lower lobe measuring 1.5 cm and a large subcarinal lymph node measuring 2.3 x 4 cm and fullness in the superior mediastinum to the right of midline may represent adenopathy. And also seen a coarsely calcified left thyroid nodule measuring 2.5 x 3.0 x 2.9 cm no hepatic abnormality mentioned subsequently patient underwent CT PET scan on January 06, 2020 which showed 2 lateral right breast solid nodules measuring 1.2 and 1.3 cm with SUV up to 5.1 and there is bilateral clusters of lymph nodes in the cervical level 3 and 4 and supraclavicular territories with SUV up to 12.5 on the right and 10.8 on the left. There are multiple bilateral pulmonary nodules with FDG activity consistent with metastatic disease. The index nodule in the posterior left lower lobe measuring 1.4 cm SUV of 8.4. There is a paratracheal subaortic subcarinal and bilateral hilar lymphadenopathy and dominant lymph node in the subcarinal territory measuring 3.1 x 4.2 cm with SUV of 20. There is intense activity in the fundus and the body of stomach which may be physiological or malignant. And left thyroid lobe calcified nodule has SUV of 7.1, strongly suggesting malignancy., Patient was referred to surgery for evaluation patient underwent mammogram on January 22, 2020 which showed 2 solid lesions in the right breast, 1 at 9 o'clock position and another one at 10 o'clock position on January 23, 2020 she underwent ultrasound-guided right breast biopsy x2 and pathology report came back mass at 10 o'clock position showed moderately differentiated invasive ductal carcinoma and mass at 9 o'clock position also showed moderately differentiated invasive ductal carcinoma prognostic profile???confirmed ER positive, 99% and MA negative, HER-2/bin negative. Ki-67 4% Patient never had colonoscopy or EGD before, smokes about 2 packs a day for more than 50 years. Denies any history of dysphagia, denies any history of hemoptysis or hematemesis, denies any history of nausea vomiting, denies any fever chills, denies any bony pains, denies any mental status changes, denies any weight loss but now with progressive mild to moderate shortness of breath on exertion, fatigue for the last couple of months. As well CT PET scan showed increased uptake in thyroid as well as extensive bilateral cervical lymphadenopathy/supraclavicular lymphadenopathy, bilateral pulmonary nodules with FDG activity and paratracheal subaortic and bilateral hilar lymphadenopathy and left thyroid lobe calcified nodule with SUV of 7.1, she was referred to ENT Dr. 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 Underwent excisional biopsy of right supraclavicular neck mass on April 16, 2020 shows metastatic squamous cell carcinoma immunohistochemistry is pending Came for follow-up, denies any specific complaints, no fever chills, no nausea or vomiting, no diarrhea or constipation, no hemoptysis or hematemesis, no dysphagia, no choking sensation, no jaundice, no headaches or blurred vision or double vision Medications: 24HR Allergy Relief 1 Tablet (of 180 mg) Oral daily PRN, Aspirin Adult Low Dose 1 Tablet (of 81 mg) Tablet, enteric coated Oral daily, Cholecalciferol (25 mcg ) Oral daily, Fenofibrate 1 Tablet (of 54 mg) Oral daily, Flonase 1 [place](s) (of 50 mcg/act) Suspension Nasal daily, Glimepiride 1 Tablet (of 1 mg) Oral daily, Lisinopril 1 Tablet (of 20 mg) Oral daily, LORazepam (0.25 mg) Tablet Oral four times a day, Metoprolol Tartrate 1 Tablet (of 25 mg) Oral b.i.d., Simvastatin 1 Tablet (of 40 mg) Oral daily Allergies: Penicillins Review of Systems: Review of Systems is not available for this patient. Vital Signs: Performed on Apr 18, 2020 09:34 Height - 64.00 in Weight - 169 lbs (LOW) BSA - 1.82 sq.m BMI - 29.01 Temperature - 97.0 F (LOW) Pulse - 91 /min Respiration - 18 /min BP - 105/64 mm(hg) O2 Sat - 91 % (LOW) Pain - 6 Fatigue - 8 Performance Status: 2 - Ambulatory/capable of all self-care, unable to perform any work activities. Up and about more than 50% of waking hours. (ECOG) Physical Examination: Hematologic/Lymphatic - Extensive bilateral cervical/supraclavicular lymphadenopathy with drainage from right supraclavicular lymph node biopsy area, Respiratory - Lungs are clear to auscultation, Cardiovascular - Regular rate and rhythm of heart, Gastrointestinal - Soft, bowel sounds present, Extremities - No visible edema. Lab/Imaging: Test performed on Mar 12, 2020 10:00 Ferritin 50 ng/mL Iron 30 mcg/dL Vitamin B12 421 pg/mL Iron Binding Capacity (TIBC) 319 mcg/dl % Iron Saturation 9.4 % UIBC 289 mcg/dL Retic Count % 1.7600 % Test performed on Mar 08, 2020 08:38 Sodium 135 mmol/L Potassium 4.2 mmol/L Chloride 100 mmol/L CO2 26 mmol/L Anion Gap 13.2 BUN 16 mg/dL Creatinine 1.1 mg/dL Cr Clearance (Est) 51.37 mL/min Glucose 109 mg/dL Osmolality - Calculated 282 mOsm/kg Calcium 8.7 mg/dL Protein, Total 6.7 g/dL Albumin 3.7 g/dL Globulin 3.0 g/dL Bilirubin, Total 0.2 mg/dL ALT (SGPT) 6 U/L AST (SGOT) 12 U/L Alkaline Phosphatase 68 IU/L WBC 8.4 10 3/uL RBC 2.74 10 6/uL HGB 9.1 g/dL HCT 28.6 % MCV 104.4 fL MCH 33.2 pg MCHC 31.8 g/dL RDW 14.2 % Platelet Count 431 10 3/cmm MPV 9.8 fL Neutrophils 6.24 10 3/uL Lymphocytes 1.3 10 3/uL Monocytes 0.5 10 3/uL Eosinophils 0.2 10 3/uL Basophils 0.1 10 3/uL Neutrophil % 74.4 % Lymphocyte % 15.5 % Monocyte % 6.3 % Eosinophil % 2.4 % Basophils % 1.0 % NRBC % 0 % Impression: 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 And coarsely calcified left thyroid nodule measuring 2.5 x 3 cm and no hepatic abnormality mentioned CT PET scan done on January 06, 2020 showed FDG positive right breast nodules Intense proximal gastric activity, gastric wall thickening could be physiologic further evaluation recommended Bilateral FDG positive cervical and supraclavicular lymph nodes consistent with metastatic disease Calcified left thyroid nodule is FDG positive likely malignant Bilateral malignant pulmonary nodules Extensive malignant mediastinal lymphadenopathy. Longstanding history of smoking 2 packs a day for more than 50 years, still active History of colonoscopy done in 2017, History of arterial bypass of lower limb. History of coronary artery disease status post stent Plan: Discussed with patient regarding her right supraclavicular lymph node biopsy which showed squamous cell carcinoma whereas her ultrasound guided right breast biopsy done on January 23, 2020 showed moderately differentiated invasive ductal carcinoma, case was discussed with pathologist today, his concern was it could be metastatic breast cancer differentiating in situ squamous cell carcinoma or patient may have second primary and immunohistochemistry is pending along with ER/MA status. In the meantime, we will order guardant 360 to identify therapeutic mutations and also request pathology to check PD-L1 If metastatic breast cancer is confirmed, then will consider starting her on hormonal therapy on the other hand if second primary is considered then will treat metastatic squamous cell carcinoma first as patient has extensive metastatic disease involving bilateral supraclavicular area mediastinum and bilateral pulmonary nodules. Signed By: Kim Scott M.D. <<Signature on File>>
== END 2020-04-18 05:45 | disposition home or self-care (01) ==
LOC: ONCMED 05:47
PROVIDERS: PCP Family Medicine; Visit Provider Internal Medicine Hematology & Oncology
DX: C50.411 Malignant neoplasm of upper-outer quadrant of right female breast (principal); Z17.0 Estrogen receptor positive status [ER+]; C78.01 Secondary malignant neoplasm of right lung; C78.02 Secondary malignant neoplasm of left lung; C77.8 Secondary and unspecified malignant neoplasm of lymph nodes of multiple regions; I25.10 Atherosclerotic heart disease of native coronary artery without angina pectoris; F17.210 Nicotine dependence, cigarettes, uncomplicated; Z95.5 Presence of coronary angioplasty implant and graft
CPT/HCPCS: 36415; 99215

== ENCOUNTER → 2020-04-26 11:36 | Outpatient (BNVA) | payer MEDICARE, OTHER, SELFPAY | PROVIDERS: PCP Family Medicine; Visit Provider Specialist | DX: Z01.818 Encounter for other preprocedural examination (principal) | CPT/HCPCS: 87635 ==

== ENCOUNTER 2020-05-02 05:59 | Outpatient (CLI) | payer MEDICARE, OTHER, SELFPAY ==
--- NOTE | 2020-05-02 17:12 | ONC FU_ITS ---
Dr. Scott follow up note Patient: Victoria Villa Unit #: [id number]: 1940 Dicatated By: Kim Scott M.D.Date of Visit:May 02, 2020 Onc Med Follow-up/Prog Note History of Present Illness: Ms. Victoria Villa, is a 79-year-old female with history of progressive shortness of breath, Underwent chest x-ray which was abnormal So underwent CT scan of chest on December 29, 2019 which showed numerous bilateral pulmonary nodules with the largest identified in the left lower lobe measuring 1.5 cm and a large subcarinal lymph node measuring 2.3 x 4 cm and fullness in the superior mediastinum to the right of midline may represent adenopathy. And also seen a coarsely calcified left thyroid nodule measuring 2.5 x 3.0 x 2.9 cm no hepatic abnormality mentioned subsequently patient underwent CT PET scan on January 06, 2020 which showed 2 lateral right breast solid nodules measuring 1.2 and 1.3 cm with SUV up to 5.1 and there is bilateral clusters of lymph nodes in the cervical level 3 and 4 and supraclavicular territories with SUV up to 12.5 on the right and 10.8 on the left. There are multiple bilateral pulmonary nodules with FDG activity consistent with metastatic disease. The index nodule in the posterior left lower lobe measuring 1.4 cm SUV of 8.4. There is a paratracheal subaortic subcarinal and bilateral hilar lymphadenopathy and dominant lymph node in the subcarinal territory measuring 3.1 x 4.2 cm with SUV of 20. There is intense activity in the fundus and the body of stomach which may be physiological or malignant. And left thyroid lobe calcified nodule has SUV of 7.1, strongly suggesting malignancy., Patient was referred to surgery for evaluation patient underwent mammogram on January 22, 2020 which showed 2 solid lesions in the right breast, 1 at 9 o'clock position and another one at 10 o'clock position on January 23, 2020 she underwent ultrasound-guided right breast biopsy x2 and pathology report came back mass at 10 o'clock position showed moderately differentiated invasive ductal carcinoma and mass at 9 o'clock position also showed moderately differentiated invasive ductal carcinoma prognostic profile???confirmed ER positive, 99% and KS negative, HER-2/bin negative. Ki-67 4% Patient never had colonoscopy or EGD before, smokes about 2 packs a day for more than 50 years. Denies any history of dysphagia, denies any history of hemoptysis or hematemesis, denies any history of nausea vomiting, denies any fever chills, denies any bony pains, denies any mental status changes, denies any weight loss but now with progressive mild to moderate shortness of breath on exertion, fatigue for the last couple of months. As well CT PET scan showed increased uptake in thyroid as well as extensive bilateral cervical lymphadenopathy/supraclavicular lymphadenopathy, bilateral pulmonary nodules with FDG activity and paratracheal subaortic and bilateral hilar lymphadenopathy and left thyroid lobe calcified nodule with SUV of 7.1, she was referred to ENT Dr. 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 Underwent excisional biopsy of right supraclavicular neck mass on April 16, 2020 shows metastatic squamous cell carcinoma, PD-L1, CPS more than 1 Guardant 360 positive for NRAS Q61K (Trametinib,binimetinib) and BRAF amplification (regorafinib ,sorefinib ,trametinib,binimetinib) Came for follow-up, denies any specific complaints except pain in both shoulder and upper chest but under control with current pain medication, no fever chills, no nausea or vomiting, no diarrhea constipation, no hemoptysis hematemesis, no dysphagia, no shortness of breath. Medications: 24HR Allergy Relief 1 Tablet (of 180 mg) Oral daily PRN, Aspirin Adult Low Dose 1 Tablet (of 81 mg) Tablet, enteric coated Oral daily, Cholecalciferol (25 mcg ) Oral daily, Fenofibrate 1 Tablet (of 54 mg) Oral daily, Flonase 1 [place](s) (of 50 mcg/act) Suspension Nasal daily, Glimepiride 1 Tablet (of 1 mg) Oral daily, HYDROcodone-Acetaminophen 1 - 2 Tablet (of 5-325 mg) Oral q 4 hours for 6 hours PRN, Lisinopril 1 Tablet (of 20 mg) Oral daily, LORazepam (0.25 mg) Tablet Oral four times a day, Metoprolol Tartrate 1 Tablet (of 25 mg) Oral b.i.d., Simvastatin 1 Tablet (of 40 mg) Oral daily Allergies: Penicillins Review of Systems: Review of Systems is not available for this patient. Vital Signs: Performed on May 02, 2020 15:26 Height - 64.00 in Weight - 159.4 lbs (LOW) BSA - 1.78 sq.m BMI - 27.36 Temperature - 98.1 F (LOW) Pulse - 120 /min (HIGH) Respiration - 18 /min BP - 167/80 mm(hg) (HIGH) O2 Sat - 90 % (LOW) Pain - 7 Performance Status: 1 - No physically strenuous activity, but ambulatory and able to carry out light or sedentary work (e.g. office work, light house work). (ECOG) Physical Examination: Respiratory - Lungs are clear to auscultation, Cardiovascular - Regular rate and rhythm of heart, Gastrointestinal - Soft, bowel sounds present, Extremities - Trace edema bilaterally. Lab/Imaging: Test performed on Mar 12, 2020 10:00 Ferritin 50 ng/mL Iron 30 mcg/dL Vitamin B12 421 pg/mL Iron Binding Capacity (TIBC) 319 mcg/dl % Iron Saturation 9.4 % UIBC 289 mcg/dL Retic Count % 1.7600 % Test performed on Mar 08, 2020 08:38 Sodium 135 mmol/L Potassium 4.2 mmol/L Chloride 100 mmol/L CO2 26 mmol/L Anion Gap 13.2 BUN 16 mg/dL Creatinine 1.1 mg/dL Cr Clearance (Est) 51.37 mL/min Glucose 109 mg/dL Osmolality - Calculated 282 mOsm/kg Calcium 8.7 mg/dL Protein, Total 6.7 g/dL Albumin 3.7 g/dL Globulin 3.0 g/dL Bilirubin, Total 0.2 mg/dL ALT (SGPT) 6 U/L AST (SGOT) 12 U/L Alkaline Phosphatase 68 IU/L WBC 8.4 10 3/uL RBC 2.74 10 6/uL HGB 9.1 g/dL HCT 28.6 % MCV 104.4 fL MCH 33.2 pg MCHC 31.8 g/dL RDW 14.2 % Platelet Count 431 10 3/cmm MPV 9.8 fL Neutrophils 6.24 10 3/uL Lymphocytes 1.3 10 3/uL Monocytes 0.5 10 3/uL Eosinophils 0.2 10 3/uL Basophils 0.1 10 3/uL Neutrophil % 74.4 % Lymphocyte % 15.5 % Monocyte % 6.3 % Eosinophil % 2.4 % Basophils % 1.0 % NRBC % 0 % Impression: Squamous cell carcinoma per right supraclavicular lymph node biopsy done on April 17, 2019, PD-L1 testing shows CPS more than 1, guardant 360+ for NRAS, BRAF amplification Moderately differentiated invasive ductal carcinoma involving right breast in 2 separate lesions 1 at 9 o'clock position other 10 o'clock position per ultrasound-guided biopsy done on January 23, 2020 prognostic profiling confirmed ER 99%, KS less than 1% HER-2/bin negative, Ki-67 4% CT scan of chest done on December 29, 2019 showed numerous bilateral pulmonary nodules with the largest identified in the left lower lobe measuring 1.5 cm and a large subcarinal lymph node measuring 2.3 x 4 cm and some fullness in the superior mediastinum to the right of midline which may represent lymphadenopathy. And coarsely calcified left thyroid nodule measuring 2.5 x 3 cm and no hepatic abnormality mentioned CT PET scan done on January 06, 2020 showed FDG positive right breast nodules Intense proximal gastric activity, gastric wall thickening could be physiologic further evaluation recommended Bilateral FDG positive cervical and supraclavicular lymph nodes consistent with metastatic disease Calcified left thyroid nodule is FDG positive likely malignant Bilateral malignant pulmonary nodules Extensive malignant mediastinal lymphadenopathy. Longstanding history of smoking 2 packs a day for more than 50 years, still active History of colonoscopy done in 2017, History of arterial bypass of lower limb. History of coronary artery disease status post stent Plan: Discussed with patient regarding her PD-L1 status as well as guardant 360 reports which shows she is a candidate for Keytruda, as a single agent, as PD-L1 testing showed CPS more than 1, other option would be trametinib plus dabrafenib. At this point, will consider Keytruda 200 mg intravenously every 3 weeks, all the side effect possible benefits including but not limited to pneumonitis, colitis, hepatic toxicity, skin rash, allergic reaction, hypothyroidism and other endocrinopathy were mentioned, further teaching will done by chemotherapy nurse, will obtain approval from her insurance prior to the treatment and also request Port-A-Cath placement. Patient return to clinic 1 week after her first dose of Keytruda, with CBC CMP We will also discuss with Dr. Diaz regarding definitive surgery for the right breast cancer, lumpectomy versus simple mastectomy. Signed By: Kim Scott M.D. <<Signature on File>>
== END 2020-05-02 06:00 | disposition home or self-care (01) ==
LOC: ONCMED 06:01
PROVIDERS: PCP Family Medicine; Visit Provider Internal Medicine Hematology & Oncology
DX: C50.811 Malignant neoplasm of overlapping sites of right female breast (principal); Z17.0 Estrogen receptor positive status [ER+]; C77.8 Secondary and unspecified malignant neoplasm of lymph nodes of multiple regions; C78.01 Secondary malignant neoplasm of right lung; C78.02 Secondary malignant neoplasm of left lung; C79.89 Secondary malignant neoplasm of other specified sites; F17.210 Nicotine dependence, cigarettes, uncomplicated; I25.10 Atherosclerotic heart disease of native coronary artery without angina pectoris; Z95.5 Presence of coronary angioplasty implant and graft; Z79.899 Other long term (current) drug therapy
CPT/HCPCS: 99215

== ENCOUNTER → 2020-05-17 00:01 | Outpatient (BNVA) | payer MEDICARE, OTHER, SELFPAY | PROVIDERS: PCP Family Medicine; Visit Provider Surgery | DX: Z01.812 Encounter for preprocedural laboratory examination (principal) | CPT/HCPCS: 87635 ==

== ENCOUNTER 2020-05-22 11:52 | Day surgery (SDC) | payer MEDICARE, OTHER, SELFPAY ==
[2020-05-21 14:10] VITALS: BMI 25.0
[2020-05-22] VITALS (12 sets, daily range): BP systolic 112–184; BP diastolic 60–108; PULSE 75–96; RESP 16–22; TEMP 36.1–36.8; O2SAT 94–100
--- NOTE | 2020-05-22 | SCC_ITS ---
Procedure Done: Placement of PowerPort in the left femoral vein 297.2 seconds of fluoroscopic guidance, for a cumulative dose of 39.64 mGy, was provided to Dr. Diaz by the radiology department. C-arm images of the port were saved for the patient's permanent record. EMILIO
[2020-05-22 12:28] LABS: Glucose Point of Care 104 mg/dL (70-110)
[2020-05-22] MEDS: sodium chloride 0.9% 1,000 ML 30 ML IV (12:31)
[2020-05-22] MEDS: metoprolol tartrate 25 mg Tablet PO (12:49)
--- NOTE | 2020-05-22 12:50 | ANES.PREANE2 ---
Pre-Anesthetic Assessment Pre-Anesthetic Assessment: Height/Weight: Height 1.7 m Weight 72.575 kg Temp Pulse Resp BP Pulse Ox 97.6 F 77 16 138/60 96 05/22/20 12:11 05/22/20 12:11 05/22/20 12:11 05/22/20 12:11 05/22/20 12:11 Preop Diagnosis: breast cancer Proposed Procedure: Operation Date: 05/22/20 14:35 Proposed Procedures p Portacath Placement 75895 C50.919(Not Applicable) - Hitesh Diaz MD Familial anesthetic complications: hard time waking up Was Beta Dahiana taken within 24 hours: N/A Was Clonidine taken within 24 hours: N/A Last intake: Intake Last Liquid Date 05/22/20 Last Liquid Time 10:00 Last Solid Date 05/21/20 Last Solid Time 20:00 Social: Social History: Tobacco and No alcohol Exam: Pre-Anes Outpt Exam: alert, oriented x 3, clear to auscultation bilaterally and regular rate & rhythm Airway: Cervical ROM: WNL MP: 2 Dentition: False Pulmonary: Pulmonary: COPD and Sleep apnea CV/HEM: CV/HEM: CAD, HTN and PVD : : Chronic renal Insufficiency Metabolic: Metabolic: DM and Hyperlipidemia Neuropsych: Comments: carotid stenosis Anesthetic Plan: ASA status: 4 Anesthesia: MAC Risk of > 500 ml blood loss (7ml/kg in children): No Meds/Allergies Current Medications: Current Medications Generic Name Dose Route Start Last Admin Trade Name Freq PRN Reason Stop Dose Admin Sodium Chloride 1,000 mls @ 30 ml s/hr 05/22/20 12:00 05/22/20 12:31 Sodium Chloride 0.9% IV 05/23/20 11:59 30 mls/hr .Q24H SYLVESTER Administration PFSH Anesthesia PFSH: Medical History ASHD (arteriosclerotic heart disease) Breast cancer Carotid stenosis Chronic kidney disease Diabetes mellitus Essential hypertension Mixed hyperlipidemia DENITA (obstructive sleep apnea) PAD (peripheral artery disease) Surgical History H/O arterial bypass of lower limb H/O colonoscopy 2017 History of ankle surgery fracture repair with hardware History of cholecystectomy History of incisional hernia repair Hx of breast biopsy Stented coronary artery Family History Father Bleeding disorder Diabetes Mother Cancer colon and aunt had colon too Other Congestive heart failure Denies family history of Anesthesia complication Social History Smoking and tobacco status: current every day smoker cigarettes Packs smoked per day: 2 Years cigarettes smoked: 50 Quit status (tobacco): not considering quitting Second hand smoke exposure: No Smoking risk assessment/counseling performed?: Yes Alcohol intake: never Lives independently: Yes Household members: none Marital status: Single Current occupational status: retired Pets and animals: Yes History of recent travel: No Current gender identity: Female Data Anesthesia Other Labs: Laboratory Results - last 48 hr 05/22/20 12:24 POC Glucose 104 Cardiac Studies: No Data to Display
[2020-05-22] MEDS: vancomycin 1,000 MG in sodium chloride 0.9% 250 ML 250 MG IV (13:07)
--- NOTE | 2020-05-22 13:57 | SC_ITS ---
WS: [id number] C-arm fluoroscopy of the right chest and lower abdomen and pelvis for port insertion. 05/22/2020 Clinical Data: port a cath Comparison: Portable chest Findings: The chest demonstrates a catheter has been inserted in the region the right internal jugular vein but then enters the right subclavian vein. The images of the lower abdomen demonstrate that a catheter i s been inserted into the left femoral vein and the tip ends in the inferior vena cava. SC/C-arm FL for CVA [id number] Impression: Port insertion.
[2020-05-22] MEDS: heparin, porcine 1,000 unit/mL INJ 10 mL 6000 UNIT IRRIGATION (14:13)
[2020-05-22] MEDS: iohexol 300 mg/mL 50 mL Btl (OR ONLY) XX (14:15)
[2020-05-22] MEDS: lidocaine 1% INJ 20 mL INTRAVESIC (14:15)
--- NOTE | 2020-05-22 15:29 | XRR_ITS ---
PROCEDURE INFORMATION: Exam: XR Chest Exam date and time: 05/22/2020 4:30 PM Age: 79 years old Clinical indication: Device placement; Picc; Patient HX: Breast cancer; Additional info: Failed portacath attempt right and left neck TECHNIQUE: Imaging protocol: XR of the chest. Views: 1 view. COMPARISON: CR Chest 1 [place] [id number] 05/21/2017 5:41 AM FINDINGS: Lungs: Lungs are mildly hyperinflated. Mildly prominent interstitial markings throughout the lungs. No focal consolidation. Pleural spaces: Unremarkable. No pleural effusion. No pneumothorax. Heart/Mediastinum: The cardiac shadow is normal in size. Aortic calcifications. Bones/joints: No acute abnormality. XR/XR chest 1V [id number] IMPRESSION: 1. No acute findings. 2. Lung findings suggest emphysema/COPD.
--- NOTE | 2020-05-22 16:17 | P.OP_ITS ---
Operative Report Date of procedure: May 22, 2020 Pre-op Diagnosis: breast cancer Post-op diagnosis: same Post-op Findings: 1. Partial to complete occlusion of right and left brachiocephalic vein, right internal jugular, and right subclavian vein Procedure Done: Placement of PowerPort in the left femoral vein Fluoroscopic guidance and interpretation for placement of catheter in the infer ior vena cava Ultrasound guidance to access the left femoral vein Venogram of chest vasculature via right subclavian vein Pathology: none sent Surgeon: Hitesh Diaz Anesthesia: General Condition: stable Disposition: PACU Procedure: The patient was taken to the operating room and placed under MAC after IV antibiotic had been administered. The chest and neck was prepped and draped in a sterile manner. An attempt was made to access the left subclavian vein but the clavicle felt abnormal and fluoroscopy showed malunion of the left clavicle distorting anatomy. Pressure dressings were applied The left internal jugular vein was entered under ultrasound guidance and there was no thrombus noted. The left internal jugular vein was accessed under ultrasound guidance using 18-gauge introducer needle. The guidewire was passed through the introducer needle but could not be advanced further under fluoroscopy. Pressure dressings were applied after the wire was removed. The right internal jugular vein was entered under ultrasound guidance and there was no thrombus noted. The right internal jugular vein was accessed under ultrasound guidance using 18-gauge introducer needle. The guidewire was passed through the introducer needle but could not be advanced further under fluoroscopy. Pressure dressings were applied after the wire was removed. The right subclavian vein was accessed using 18-gauge introducer needle with aspiration of blood but the guidewire again could not be advanced under fluoroscopy. So 30 cc of saline mixed with 30 cc of Omnipaque was injected through the introducer needle and there was occlusion noted in the internal jugular, brachiocephalic and superior vena cava and there were significant collaterals noted. The introducer needle was removed and pressure dressings applied. Ultrasound of the right femoral vein revealed a narrow caliber vessel and therefore I did not attempt to access it but the left femoral vein appeared patent with no evidence of thrombus. Was prepped and draped in a sterile manner. A total of 10 mL of 1% lidocaine with 0.5% Marcaine was infiltrated under the clavicle on the [] side at the site of the planned entry into the subclavian vein. An introducer needle was then used to access the left femoral vein under the and after withdrawing blood syringe was removed and a guidewire passed under fluoroscopy into the inferior vena cava. The site of the planned port was then marked on the left thigh and a 15 blade was used to make a 3 cm skin incision this was extended into the subcutaneous tissue using electrocautery and a subcutaneous pocket over the pectoralis fascia was created 2-0 Vicryl suture was used to suture the port to the muscular fascia in the pocket on 3 sides. The catheter, after having been flushed with hep saline, was attached to the tunneler and a tunnel created between the port site and the femoral vein entry site. Under fluoroscopy the dilator sheath was passed over the guidewire into the iliac vein and advanced into the inferior vena cava. The inner dilator was removed and the sheath left behind and the catheter was introduced through the peel-away sheath with the tip in the inferior vena cava. The peel-away sheath was removed. The proximal end of the catheter was cut to the right size and was attached to the port. Using a Canales needle the port was accessed, it withdrew blood easily and flushed easily. A final 5cc of heparin was used to flush the PowerPort. The subcutaneous tissue was approximated using interrupted 3-0 Vicryl sutures and the skin at the introducer site and the port site was closed using subcuticular running 4-0 Monocryl sutures. Surgical glue was applied and the patient was stable throughout the procedure. Fluoroscopic guidance and interpretation was performed for introduction of the guidewire in the right subclavian, left femoral, left internal jugular and right internal jugular vein and subsequently passage of dilator and placement of catheter tip in the inferior vena cava.
--- NOTE | 2020-05-22 16:57 | SUR.PHASEI ---
164 PT AWAKE ALERT RESP LABORED WITH EXPIRATORY BILAT WHEEZE NOTED AUDIBLE, PT NODS HEAD YES TO THE QUESTION ( IS IT HARD TO BREATH?) PT COUGHING UP LARGE AMTS OF CLEAR THICK STRINGY SPUTUM AND BLOWING NOSE FREQUENTLY, PT UP IN BED 45 DEGREES X RAYS DONE, SEE ALBUTEROL NEB TX GIVEN FOR ABOVE SYMPTOMS . 1653 TX FINISHED PT RESP LESS LABORED AND NO AUDIBLE WHEEZES NOTED , BILAT LUNGS VERY DIMINISHED , BUT UPPER LOBES CLEAR, PT VERY ALERT AND TALKATIVE TAKING ICE CHIPS ON 3LNC PT STATES SHE IS ON O2 AT HOME PRN.
--- NOTE | 2020-05-23 13:27 | W.PM.OPSUD ---
Surgery/Procedure H&P Update DATE OF PROCEDURE: May 22, 2020 DATE H&P PERFORMED: 05/07/20 H&P UPDATE INFORMATION: I have reviewed H&P completed within last 30 days, I have examined patient prior to procedure and No changes to prior documentation PREOP DIAGNOSIS: breast cancer PLANNED PROCEDURE: Operation Date: 05/22/20 14:35 Proposed Procedures p Portacath Placement 16232 C50.919(Not Applicable) - Hitesh Diaz MD
== END 2020-05-22 18:15 | disposition home or self-care (01) ==
PROVIDERS: PCP Family Medicine; Visit Provider Surgery
PROC: (CPT 36561; principal; 2020-05-22 14:25)
DX: C50.919 Malignant neoplasm of unspecified site of unspecified female breast (principal); C79.9 Secondary malignant neoplasm of unspecified site; E11.22 Type 2 diabetes mellitus with diabetic chronic kidney disease; I12.9 Hypertensive chronic kidney disease with stage 1 through stage 4 chronic kidney disease, or unspecified chronic kidney disease; N18.9 Chronic kidney disease, unspecified; E78.2 Mixed hyperlipidemia; G47.33 Obstructive sleep apnea (adult) (pediatric); I73.9 Peripheral vascular disease, unspecified; F17.210 Nicotine dependence, cigarettes, uncomplicated; Z79.82 Long term (current) use of aspirin
CPT/HCPCS: 36561; 36416; 71045; 76000; 77001; 82962; 96365; C1788; J1644; J2250; J2370; J2704; J2710; J3010; J3370; J3490; J7030; J7050; J7611

== ENCOUNTER 2020-05-30 09:54 | Outpatient (CLI) | payer MEDICARE, OTHER, SELFPAY ==
[2020-05-30 10:43] LABS: Basophils % 0.3 %; Eosinophils # 0.1 10^3/uL (0.0-0.8); Eosinophils % 0.7 %; Hematocrit 29.8 % (37.0-47.0); Hemoglobin 9.5 g/dL (11.5-15.3); Lymphocytes # 0.9 10^3/uL (0.8-4.8); Lymphocytes % 8.8 %; Mean Corpuscular HGB Conc 31.9 g/dL (30.0-36.0); Mean Corpuscular Hemoglobin 31.5 pg (28.0-34.0); Mean Corpuscular Volume 98.7 fL (81-99); Mean Platelet Volume 10.2 fL (7.4-10.4); Monocytes # 0.6 10^3/uL (0.2-0.9); Monocytes % 5.9 %; Neutrophils # 8.27 10^3/uL (1.8-7.7); Neutrophils % 83.9 %; Nucleated Red Blood Cells % 0 %; Platelet Count 328 10^3/cmm (130-400); Red Blood Count 3.02 10^6/uL (4.1-5.3); Red Cell Distribution Width 16.6 % (12.1-15.1); White Blood Count 9.9 10^3/uL (4.0-10.0)
[2020-05-30 11:11] LABS: Alanine Aminotransferase 6 U/L (0-33); Albumin Level 2.9 g/dL (3.5-5.2); Alkaline Phosphatase 78 IU/L (35-105); Anion Gap 13.8 (5-19); Aspartate Amino Transferase 16 U/L (0-32); Blood Urea Nitrogen 18 mg/dL (8-23); Calcium 7.8 mg/dL (8.5-10.5); Carbon Dioxide 29 mmol/L (22-29); Chloride 96 mmol/L (98-107); Globulin 2.8 g/dL (1.3-4.6); Osmolality Calculated 280 mOsm/kg (285-295); Sodium 136 mmol/L (136-145); Thyroid Stimulating Hormone 0.59 uIU/mL (0.27-4.20); Total Bilirubin 0.3 mg/dL (0.15-1.2); Total Protein 5.7 g/dL (6.6-8.7)
[2020-05-30 11:17] LABS: Glucose 35 mg/dL (65-115); Potassium 2.8 mmol/L (3.5-5.1)
[2020-05-30] MEDS: potassium chloride 20 MEQ in sodium chloride 0.9% 500 ML 250 MEQ IV (11:40)
[2020-05-30 11:55] LABS: Magnesium 1.1 mg/dL (1.7-2.3)
[2020-05-30 14:35] LABS: Alanine Aminotransferase 6 U/L (0-33); Albumin Level 2.8 g/dL (3.5-5.2); Alkaline Phosphatase 80 IU/L (35-105); Anion Gap 12.1 (5-19); Aspartate Amino Transferase 14 U/L (0-32); Blood Urea Nitrogen 17 mg/dL (8-23); Calcium 7.8 mg/dL (8.5-10.5); Carbon Dioxide 31 mmol/L (22-29); Chloride 96 mmol/L (98-107); Globulin 2.8 g/dL (1.3-4.6); Glucose 56 mg/dL (65-115); Magnesium 1.5 mg/dL (1.7-2.3); Osmolality Calculated 281 mOsm/kg (285-295); Potassium 3.1 mmol/L (3.5-5.1); Sodium 136 mmol/L (136-145); Total Bilirubin 0.3 mg/dL (0.15-1.2); Total Protein 5.6 g/dL (6.6-8.7)
[2020-05-30] MEDS: sodium chloride 0.9% 500 ML 999 ML IV (14:40)
--- NOTE | 2020-05-31 08:23 | PC.NURSE ---
pt given duoneb at 1450 for wheezing, increased respiratory effort. ms
== END 2020-05-30 09:55 | disposition home or self-care (01) ==
PROVIDERS: PCP Family Medicine; Visit Provider Internal Medicine Hematology & Oncology
DX: C50.411 Malignant neoplasm of upper-outer quadrant of right female breast (principal); Z17.0 Estrogen receptor positive status [ER+]; E86.0 Dehydration
CPT/HCPCS: 80053; 83735; 84443; 85025; 96365; 96366; J3475; J3480; J7040

== ENCOUNTER 2020-05-30 14:51 | Emergency (ER) | payer MEDICARE, OTHER, SELFPAY ==
[2020-05-30 14:56] VITALS: BP 197/95; PULSE 126; RESP 24; TEMP 36.8; O2SAT 84; BMI 23.5
[2020-05-30 15:02] VITALS: BP 173/86; PULSE 126; RESP 30; O2SAT 96; O2SAT 97
[2020-05-30 15:13] LABS: Glucose Point of Care 98 mg/dL (70-110)
--- NOTE | 2020-05-30 15:16 | XR_ITS ---
WS: [id number] Portable AP upright chest, 05/30/2020 Clinical Data: hypoxia Comparison: Portable chest, 05/22/2020. Findings: No nodules, masses or effusions are seen. The heart is normal. The pulmonary vascularity is not increased. No pneumonia or pneumothorax is seen. The diaphragms are flattened. The aortic arch a nd descending aorta show calcification and tortuosity. There are monitor leads on the chest wall. The re is an old fracture of the midshaft of the left clavicle. XR/XR chest 1V portable [id number] Impression: Atherosclerosis and hyperinflation.
--- NOTE | 2020-05-30 15:20 | ECG_ITS ---
[facility] Test Date: 2020-05-30 Pat Name: Victoria Villa Department: Room: Gender: Female [employer] Operator: : 1940 Requested By: Jose Antonio Perales Order Number: [id number] Molly MD: RIVERA CARDOSO Measurements Intervals [place] Rate: 115 P: 71 LA: 131 QRS: 42 QRSD: 89 T: 67 QT: 324 QTc: 448 Interpretive Statements SINUS TACHYCARDIA WITH FREQUENT SUPRAVENTRICULAR PREMATURE COMPLEXES NONSPECIFIC ST & T-WAVE ABNORMALITY ABNORMAL RHYTHM ECG Compared to ECG 05/17/2017 21:01:23 T-wave abnormality now present Sinus rhythm no longer present Short LA interval no longer present Electronically Signed On 05-30-2020 20:41:37 CDT by RIVERA CARDOSO [id number] f
[2020-05-30 15:21] VITALS: BP 173/86; PULSE 112; RESP 20; O2SAT 97
--- NOTE | 2020-05-30 15:25 | CT_ITS ---
WS: [id number] CTA scan of the chest with IV contrast. Additional two-dimensional coronal and sagittal reconstructio n and MIP images was performed. 05/30/2020 Clinical Data: dyspnea/hypoxia/lung ca Comparison: None. DLP: 602.[address] scans at [facility] use at least one of these dose optimization techniques: automat ed exposure control; mA and/or kV adjustment per patient size (includes targeted exams where dose is matched to clinical indication); or iterative reconstruction. Findings: The central pulmonary arteries and peripheral pulmonary arteries fill normally with no evidence of in traluminal filling defects. No pulmonary embolic disease is noted. There are numerous nodules throughout the lungs. The largest are in the lower lobe, one on the left m easuring 1.7 cm and 2 in the right lower lobe and 1.6 cm respectively. There are many other smaller n odules throughout the lungs. There is subcarinal adenopathy and right hilar adenopathy. The heart siz e is normal with no pericardial effusion. There is coronary artery calcification. The thoracic aorta shows calcification of the wall but no dissection.. The thyroid gland shows normal enhancement. There is a calcified nodule in the left lobe measuring 2.7 cm. The trachea bifurcates into the bronchi. Th ere is a small hiatal hernia. The upper abdomen shows no liver metastatic lesions. The left kidney is atrophic. No bony metastatic lesions are seen but there is osteoarthritis of the thoracic vertebral bodies. CT/CT angio chest PE protcl [id number] Impression: 1. Negative for pulmonary embolic disease. 2. Numerous nodules throughout the lungs which are probably metastatic. 3. Subcarinal and right hilar adenopathy again probably metastatic. 4. Calcified left thyroid nodule. 5. Negative for liver metastatic lesions or bony metastatic lesions.
[2020-05-30 15:37] LABS: Basophils % 0.4 %; Eosinophils # 0.1 10^3/uL (0.0-0.8); Eosinophils % 1.3 %; Hematocrit 30.8 % (37.0-47.0); Lymphocytes # 1.1 10^3/uL (0.8-4.8); Lymphocytes % 10.5 %; Mean Corpuscular HGB Conc 32.5 g/dL (30.0-36.0); Mean Corpuscular Hemoglobin 31.7 pg (28.0-34.0); Mean Corpuscular Volume 97.8 fL (81-99); Mean Platelet Volume 10.3 fL (7.4-10.4); Monocytes # 0.7 10^3/uL (0.2-0.9); Monocytes % 6.9 %; Neutrophils # 8.72 10^3/uL (1.8-7.7); Neutrophils % 80.6 %; Nucleated Red Blood Cells % 0.2 %; Platelet Count 357 10^3/cmm (130-400); Red Blood Count 3.15 10^6/uL (4.1-5.3); Red Cell Distribution Width 16.5 % (12.1-15.1); White Blood Count 10.8 10^3/uL (4.0-10.0)
[2020-05-30] MEDS: iodixanol 320 mg/mL 100mL Btl IV (15:47)
[2020-05-30 15:50] LABS: Troponin(5th) Baseline 56 ng/L (0-10)
[2020-05-30 15:55] LABS: Lactate (Lactic Acid level) 1.5 mmol/L (0.5-2.2)
[2020-05-30 15:58] LABS: Alanine Aminotransferase 7 U/L (0-33); Albumin Level 3.2 g/dL (3.5-5.2); Alkaline Phosphatase 91 IU/L (35-105); Anion Gap 14.1 (5-19); Aspartate Amino Transferase 16 U/L (0-32); Blood Urea Nitrogen 17 mg/dL (8-23); Calcium 7.7 mg/dL (8.5-10.5); Carbon Dioxide 29 mmol/L (22-29); Chloride 96 mmol/L (98-107); Creatinine Clr Calc Pharmacy 57.7692; Globulin 2.5 g/dL (1.3-4.6); Glucose 82 mg/dL (65-115); NT Pro B Type Natriuretic Pept 1076 pg/mL (0-450); Osmolality Calculated 283 mOsm/kg (285-295); Potassium 3.1 mmol/L (3.5-5.1); Sodium 136 mmol/L (136-145); Total Bilirubin 0.3 mg/dL (0.15-1.2); Total Protein 5.7 g/dL (6.6-8.7)
[2020-05-30 16:02] VITALS: PULSE 104; RESP 18; O2SAT 99
[2020-05-30] MEDS: ipratropium-albuterol 3 mL Neb INHALATION (16:02)
[2020-05-30 16:06] VITALS: PULSE 103
[2020-05-30 16:14] LABS: ABG PH Result 7.48 (7.35-7.45); Arterial Blood Gas Hematocrit 30.3 % (37-47); Base Excess ABG 5.1 mmol/L (-2.0-2.0); Blood Gas Allen Test Pos; Blood Gas Operator Identificat CAK; Blood Gas Sample Site Radial, left; Blood Gas Sample Type Arterial; HGB O2 Sat 96.6 % (95-100); Methemoglobin 0.8 % (0.4-1.5); Oxygen Device NC; Total Hemoglobin 9.9 g/dL (12-16)
--- NOTE | 2020-05-30 16:36 | PC.PHAR ---
PT STATES SHE TAKES CARE OF HER OWN MEDICATIONS-PT STATES SHE HAS BEEN TAKING A OTC RIVERA COUGH MEDICATION BUT IS UNSURE OF THE NAME-PT STATES SHE HASNT TAKEN HER MEDS FOR A WEEK AGO WEDNESDAY EXCEPT FOR HER NORCO AND MORPHINE-PT STATES SHE IS TAKING METOPROLOL TARTRATE 25MG BID BUT [facility] STATES THEY HAVENT FILLED THIS YEAR BUT HAS ONE ON HOLD FROM 04/03/20-PT STATES SHE IS TAKING LISINOPRIL 10MG DAILY [facility] LAST FILLED ON 02/21/20 45D/S-PT STATES SHE HASNT PICKED UP THE BENZONATATE FROM THE PHARMACY YET-PT STATES SHE HAD A INCRUSE AND SPIRIVA RESPIMAT INHALER BUT STATES SHE HASNT AND ISNT GOING TO TAKE THEM
[2020-05-30 17:10] LABS: D Dimer 3.41 ug/mIFEU (0-0.59)
[2020-05-30 17:20] LABS: SARS Covid-2 Antigen Negative (Negative)
--- NOTE | 2020-05-30 17:20 | ECG_ITS ---
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: : 1940 Requested By: Jose Antonio Perales Order Number: [id number] Reading MD: RIVERA CARDOSO Measurements Intervals [place] Rate: 105 P: 73 MI: 122 QRS: 40 QRSD: 93 T: 53 QT: 333 QTc: 442 Interpretive Statements SINUS TACHYCARDIA WITH OCCASIONAL SUPRAVENTRICULAR PREMATURE COMPLEXES MINIMAL ST DEPRESSION [0.025+ mV ST DEPRESSION] ABNORMAL RHYTHM ECG Compared to ECG 05/30/2020 15:14:26 ST (T wave) deviation now present T-wave abnormality no longer present Electronically Signed On 05-30-2020 20:43:21 CDT by RIVERA CARDOSO [id number]
[2020-05-30] MEDS: potassium chloride ER 20 mEq Tablet 40 MEQ PO (17:22)
[2020-05-30] MEDS: azithromycin 250 mg Tablet 500 MG PO (17:34)
[2020-05-30 18:17] VITALS: BP 153/81; PULSE 98; RESP 18; O2SAT 96
[2020-05-30 18:36] LABS: Troponin 5 2HR 117.7 ng/L (0-10); Troponin 5 2HR Delta 61.7 ABS# (0-10)
--- NOTE | 2020-05-30 18:48 | W.ED.SOB ---
HPI - SOB/Dyspnea General: Chief Complaint: Shortness of Breath/Dyspnea Stated Complaint: sob Time Seen by Provider: 05/30/20 15:13 History of Present Illness: HPI Narrative: The patient is a 80-year-old female with past medical history COPD who wears as needed oxygen at home, lung and breast cancer. She had labs drawn at the oncology clinic which shows blood glucose 34 and potassium 2.8. At the oncology clinic she was satting 70% on room air. On arrival to the ER she is satting 84% with bilateral wheezing. She is requiring 3 L of oxygen to sat in the mid 90s. MD elicited complaint: shortness of breath and cough Pertinent past history: COPD Timing: constant Severity: moderate Exacerbating factors: exertion and coughing Relieving factors: oxygen and bronchodilators Known history of: COPD Associated symptoms: Reports cough; Deny abdominal pain, chest pain, dizziness, extremity pain, fever(s), orthopnea, palpitations or polyuria Review of Systems General: Reports: 10 or more systems reviewed and unremarkable except in HPI and below Const: Denies: fever(s) Eyes: Denies: change in vision, blurry vision or eye redness ENMT: Denies: throat pain, swelling of lips/tongue, ear or mastoid pain or nasal congestion Card: Denies: chest pain, palpitations, irregular heart rhythm, edema, dyspnea on exertion or orthopnea Resp: Reports: dyspnea, non-productive cough and wheezing; Denies: productive cough GI: Denies: abdominal pain, diarrhea or GI cramping : Denies: flank pain, difficulty voiding, urinary frequency or urinary urgency Musc: Denies: neck pain, back pain, extremity pain, joint pain, joint redness, limited range of motion or muscle weakness Skin/Breast: Denies: rash, pruritus, erythema, skin pain or skin tenderness Neuro: Denies: headache(s), numbness in extremities, weakness in extremities, sensory changes, difficulty walking, dizziness, confusion or Slurred speech present Psych: Denies: anxiety or depression Endo: Denies: polyuria All/Imm: Denies: urticaria, throat swelling or tongue swelling PFSH ED PFSH: Medical History (Updated 05/30/20 @ 18:44 by Jose Antonio Perales MD) ASHD (arteriosclerotic heart disease) Breast cancer Carotid stenosis Chronic kidney disease Diabetes mellitus Essential hypertension Mixed hyperlipidemia DENITA (obstructive sleep apnea) PAD (peripheral artery disease) Surgical History (Updated 05/22/20 @ 16:16 by Hitesh Diaz MD) H/O arterial bypass of lower limb H/O colonoscopy 2017 History of ankle surgery fracture repair with hardware History of cholecystectomy History of incisional hernia repair Hx of breast biopsy Port-A-Cath in place (05/22/20) Stented coronary artery Family History Father Bleeding disorder Diabetes Mother Cancer colon and aunt had colon too Other Congestive heart failure Denies family history of Anesthesia complication Social History Smoking and tobacco status: current every day smoker cigarettes Packs smoked per day: 2 Years cigarettes smoked: 50 Quit status (tobacco): not considering quitting Second hand smoke exposure: No Smoking risk assessment/counseling performed?: Yes Alcohol intake: never Lives independently: Yes Household members: none Marital status: Single Current occupational status: retired Pets and animals: Yes History of recent travel: No Current gender identity: Female Physical Exam Const: COMMON NORMALS: average body habitus, patient oriented x3, no limitations, healthy appearing, alert and well nourished GENERAL APPEARANCE: cooperative, comfortable, well kempt, well developed and in distress ORIENTATION/CONSCIOUSNESS: Yes awake, Yes oriented to person, Yes oriented to place and Yes oriented to time OTHER: mild respiratory distress HENMT: COMMON NORMALS: normocephalic, external ears normal and Normal external nose present HEAD & SCALP: normal to inspection and normocephalic NOSE: Normal external nose present EXTERNAL EAR: Yes external ears normal MOUTH: Normal oral and palatal mucosa present THROAT: posterior oropharynx normal Eye: COMMON NORMALS: Equal, round and reactive pupils present and EOMs intact bilaterally GENERAL EYE: appearance normal, both eyes and all related structures PUPIL: Yes Equal, round and reactive pupils present Neck/C-Spine: COMMON NORMALS: full ROM, no lymphadenopathy, no meningeal signs and no JVD GENERAL: Yes normal visual inspection Lymph: LYMPHATIC: no lymphadenopathy noted Chest: COMMONS NORMALS: normal inspection of the chest and normal palpation of entire chest wall Resp: COMMON NORMALS: No retractions EFFORT & INSPECTION: Yes able to speak in complete sentences, Yes tachypneic, Yes respiratory distress and Yes pursed lip breathing AUSCULTATION: wheezes and diminished lung sounds Cardio: COMMON NORMALS: no JVD, regular rhythm, S1 normal heart sound present, S2 normal heart sound present and Peripheral pulses 2+ throughout RATE: tachycardic RHYTHM: regular rhythm HEART SOUNDS: S1 normal heart sound present and S2 normal heart sound present PERIPHERAL PULSES: Peripheral pulses 2+ throughout GI: COMMON NORMALS: Normal to inspection, nondistended, normoactive bowel sounds present, Soft to palpation, non-tender and no masses INSPECTION: Yes normal to inspection PALPATION: Yes Soft to palpation : COMMON NORMALS: Yes no CVA tenderness BLADDER/KIDNEY EXAM: Yes no CVA tenderness Back/Pelvis: COMMON NORMALS: no CVA tenderness, thoracic and lumbar spine normal to inspection, no thoracic nor lumbar tenderness and thoraco-lumbar ROM normal Extremity: COMMON NORMALS: normal to inspection, full ROM, capillary refill normal, no joint enlargement and no pedal edema GENERAL: Yes normal exam except as noted Neuro: COMMON NORMALS: patient oriented x3, CN's II-XII intact bilaterally, moves all extremities, no focal motor deficits, no sensory deficits noted and gait normal SENSORIUM/ORIENTATION: Yes alert, Yes oriented to person, Yes oriented to place and Yes oriented to time MENINGEAL SIGNS: Yes no meningeal signs Psych: COMMON NORMALS: mental status grossly normal, Normal thought process present, cooperative, normal affect and speech normal APPEARANCE: Yes well kempt ATTITUDE: Yes calm SPEECH: Yes normal speech THOUGHT PROCESS: Normal thought process present Skin: COMMON NORMALS: no rashes or lesions noted GENERAL SKIN EXAM: no rashes or lesions noted Course Vital Signs: Vital signs: Vital Signs Temperature 98.2 F 05/30/20 14:56 Pulse Rate 98 05/30/20 18:17 Respiratory Rate 18 05/30/20 18:17 Blood Pressure 153/81 05/30/20 18:17 Pulse Oximetry 96 05/30/20 18:17 MDM - SOB/Dyspnea MDM Narrative: Medical decision making narrative: The patient came to the ER with shortness of breath and wheezing typical of her COPD exacerbations. She also has a history of lung and breast cancer chronically. She was severely hypoxic at 70% at the oncology clinic and was satting 84% on arrival. She was given Solu-Medrol, a DuoNeb, azithromycin and her respiratory condition improved. Her initial troponin however was elevated at 56 and her 2-hour troponin was 117.7. This is a very positive delta and recommended she be admitted. The patient said she is not having chest pain and she is no longer short of breath and is requesting discharge. I again and told her she would be kept observation for monitoring of this as it could represent a heart attack which she could from. She again says she is going home and she understands and accepts those consequences and that if she dies she wants to at home. She signed AGAINST MEDICAL ADVICE and left with her niece. Lab Data: Labs: Lab Results 05/30/20 05/30/20 05/30/20 Range/Units 15:09 15:10 15:10 WBC 10.8 H (4.0-10.0) 10^3/ uL RBC 3.15 L (4.1-5.3) 10^6/u L Hgb 10.0 L (11.5-15.3) g/dL Hct 30.8 L (37.0-47.0) % MCV 97.8 (81-99) fL MCH 31.7 (28.0-34.0) pg MCHC 32.5 (30.0-36.0) g/dL RDW 16.5 H (12.1-15.1) % Plt Count 357 (130-400) 10^3/c mm MPV 10.3 (7.4-10.4) fL Neut % (Auto) 80.6 % Lymph % (Auto) 10.5 % [place] % (Auto) 6.9 % Eos % (Auto) 1.3 % Baso % (Auto) 0.4 % Neut # (Auto) 8.72 H (1.8-7.7) 10^3/u L Lymph # (Auto) 1.1 (0.8-4.8) 10^3/u L [place] # (Auto) 0.7 (0.2-0.9) 10^3/u L Eos # (Auto) 0.1 (0.0-0.8) 10^3/u L Baso # (Auto) 0.0 (0.0-0.1) 10^3/u L Nucleated RBC % (a uto) 0.2 % Nucleated RBCs # 0.0 /100WBC D-Dimer (0-0.59) ug/mIFE U Specimen Type Sample Site ABG pH (7.35-7.45) ABG pCO2 (35-45) mmHg ABG pO2 (80.0-100.0) mmH g ABG HCO3 (22-26) mmol/L ABG Base Excess (-2.0-2.0) mmol/ L Vel Test Hematocrit (37-47) % Hgb O2 Saturation (95-100) % Carboxyhemoglobin (0.4-20.1) %THgb Methemoglobin (0.4-1.5) % Total Hemoglobin (12-16) g/dL O2 Delivery Device FiO2 % Vacuum Tester Cans ID Sodium 136 (136-145) mmol/L Potassium 3.1 L (3.5-5.1) mmol/L Chloride 96 L (98-107) mmol/L Carbon Dioxide 29 (22-29) mmol/L Anion Gap 14.1 (5-19) BUN 17 (8-23) mg/dL Creatinine 0.8 (0.5-0.9) mg/dL GFR Calculation Not Reportable Glucose 82 (65-115) mg/dL POC Glucose 98 (70-110) mg/dL Calculated Osmolal ity 283 L (285-295) mOsm/k g Lactate (0.5-2.2) mmol/L Calcium 7.7 L (8.5-10.5) mg/dL Total Bilirubin 0.3 (0.15-1.2) mg/dL AST 16 (0-32) U/L ALT 7 (0-33) U/L Alkaline Phosphata se 91 (35-105) IU/L Troponin T Baselin e (0-10) ng/L Troponin T 120 Min [place] Troponin T NT-Pro-B Natriuret Pep 1076 H (0-450) pg/mL Total Protein 5.7 L (6.6-8.7) g/dL Albumin 3.2 L (3.5-5.2) g/dL Globulin 2.5 (1.3-4.6) g/dL SARS-CoV-2 Ag (Rap id) (Negative) 05/30/20 05/30/20 05/30/20 Range/Units 15:10 15:10 16:02 WBC (4.0-10.0) 10^3/ uL RBC (4.1-5.3) 10^6/u L Hgb (11.5-15.3) g/dL Hct (37.0-47.0) % MCV (81-99) fL MCH (28.0-34.0) pg MCHC (30.0-36.0) g/dL RDW (12.1-15.1) % Plt Count (130-400) 10^3/c mm MPV (7.4-10.4) fL Neut % (Auto) % Lymph % (Auto) % [place] % (Auto) % Eos % (Auto) % Baso % (Auto) % Neut # (Auto) (1.8-7.7) 10^3/u L Lymph # (Auto) (0.8-4.8) 10^3/u L [place] # (Auto) (0.2-0.9) 10^3/u L Eos # (Auto) (0.0-0.8) 10^3/u L Baso # (Auto) (0.0-0.1) 10^3/u L Nucleated RBC % (a uto) % Nucleated RBCs # /100WBC D-Dimer (0-0.59) ug/mIFE U Specimen Type Arterial Sample Site Radial, left ABG pH 7.48 H (7.35-7.45) ABG pCO2 39.0 (35-45) mmHg ABG pO2 120.0 H (80.0-100.0) mmH g ABG HCO3 29.0 H (22-26) mmol/L ABG Base Excess 5.1 H (-2.0-2.0) mmol/ L Vel Test Pos Hematocrit 30.3 L (37-47) % Hgb O2 Saturation 96.6 (95-100) % Carboxyhemoglobin 2.0 (0.4-20.1) %THgb Methemoglobin 0.8 (0.4-1.5) % Total Hemoglobin 9.9 L (12-16) g/dL O2 Delivery Device Nc FiO2 28.0 % Vacuum Tester Cans ID Cak Sodium (136-145) mmol/L Potassium (3.5-5.1) mmol/L Chloride (98-107) mmol/L Carbon Dioxide (22-29) mmol/L Anion Gap (5-19) BUN (8-23) mg/dL Creatinine (0.5-0.9) mg/dL GFR Calculation Glucose (65-115) mg/dL POC Glucose (70-110) mg/dL Calculated Osmolal ity (285-295) mOsm/k g Lactate 1.5 (0.5-2.2) mmol/L Calcium (8.5-10.5) mg/dL Total Bilirubin (0.15-1.2) mg/dL AST (0-32) U/L ALT (0-33) U/L Alkaline Phosphata se (35-105) IU/L Troponin T Baselin e 56 H (0-10) ng/L Troponin T 120 Min [place] Troponin T NT-Pro-B Natriuret Pep (0-450) pg/mL Total Protein (6.6-8.7) g/dL Albumin (3.5-5.2) g/dL Globulin (1.3-4.6) g/dL SARS-CoV-2 Ag (Rap id) (Negative) 05/30/20 05/30/20 05/30/20 Range/Units 16:10 16:20 16:55 WBC (4.0-10.0) 10^3/ uL RBC (4.1-5.3) 10^6/u L Hgb (11.5-15.3) g/dL Hct (37.0-47.0) % MCV (81-99) fL MCH (28.0-34.0) pg MCHC (30.0-36.0) g/dL RDW (12.1-15.1) % Plt Count (130-400) 10^3/c mm MPV (7.4-10.4) fL Neut % (Auto) % Lymph % (Auto) % [place] % (Auto) % Eos % (Auto) % Baso % (Auto) % Neut # (Auto) (1.8-7.7) 10^3/u L Lymph # (Auto) (0.8-4.8) 10^3/u L [place] # (Auto) (0.2-0.9) 10^3/u L Eos # (Auto) (0.0-0.8) 10^3/u L Baso # (Auto) (0.0-0.1) 10^3/u L Nucleated RBC % (a uto) % Nucleated RBCs # /100WBC D-Dimer 3.41 H (0-0.59) ug/mIFE U Specimen Type Sample Site ABG pH (7.35-7.45) ABG pCO2 (35-45) mmHg ABG pO2 (80.0-100.0) mmH g ABG HCO3 (22-26) mmol/L ABG Base Excess (-2.0-2.0) mmol/ L Vel Test Hematocrit (37-47) % Hgb O2 Saturation (95-100) % Carboxyhemoglobin (0.4-20.1) %THgb Methemoglobin (0.4-1.5) % Total Hemoglobin (12-16) g/dL O2 Delivery Device FiO2 % Vacuum Tester Cans ID Sodium (136-145) mmol/L Potassium (3.5-5.1) mmol/L Chloride (98-107) mmol/L Carbon Dioxide (22-29) mmol/L Anion Gap (5-19) BUN (8-23) mg/dL Creatinine (0.5-0.9) mg/dL GFR Calculation Glucose (65-115) mg/dL POC Glucose (70-110) mg/dL Calculated Osmolal ity (285-295) mOsm/k g Lactate (0.5-2.2) mmol/L Calcium (8.5-10.5) mg/dL Total Bilirubin (0.15-1.2) mg/dL AST (0-32) U/L ALT (0-33) U/L Alkaline Phosphata se (35-105) IU/L Troponin T Baselin e (0-10) ng/L Troponin T 120 Min [place] Cancelled [place] Troponin T Cancelled NT-Pro-B Natriuret Pep (0-450) pg/mL Total Protein (6.6-8.7) g/dL Albumin (3.5-5.2) g/dL Globulin (1.3-4.6) g/dL SARS-CoV-2 Ag (Rap id) Negative (Negative) 05/30/20 Range/Units 17:55 WBC (4.0-10.0) 10^3/ uL RBC (4.1-5.3) 10^6/u L Hgb (11.5-15.3) g/dL Hct (37.0-47.0) % MCV (81-99) fL MCH (28.0-34.0) pg MCHC (30.0-36.0) g/dL RDW (12.1-15.1) % Plt Count (130-400) 10^3/c mm MPV (7.4-10.4) fL Neut % (Auto) % Lymph % (Auto) % [place] % (Auto) % Eos % (Auto) % Baso % (Auto) % Neut # (Auto) (1.8-7.7) 10^3/u L Lymph # (Auto) (0.8-4.8) 10^3/u L [place] # (Auto) (0.2-0.9) 10^3/u L Eos # (Auto) (0.0-0.8) 10^3/u L Baso # (Auto) (0.0-0.1) 10^3/u L Nucleated RBC % (a uto) % Nucleated RBCs # /100WBC D-Dimer (0-0.59) ug/mIFE U Specimen Type Sample Site ABG pH (7.35-7.45) ABG pCO2 (35-45) mmHg ABG pO2 (80.0-100.0) mmH g ABG HCO3 (22-26) mmol/L ABG Base Excess (-2.0-2.0) mmol/ L Vel Test Hematocrit (37-47) % Hgb O2 Saturation (95-100) % Carboxyhemoglobin (0.4-20.1) %THgb Methemoglobin (0.4-1.5) % Total Hemoglobin (12-16) g/dL O2 Delivery Device FiO2 % Vacuum Tester Cans ID Sodium (136-145) mmol/L Potassium (3.5-5.1) mmol/L Chloride (98-107) mmol/L Carbon Dioxide (22-29) mmol/L Anion Gap (5-19) BUN (8-23) mg/dL Creatinine (0.5-0.9) mg/dL GFR Calculation Glucose (65-115) mg/dL POC Glucose (70-110) mg/dL Calculated Osmolal ity (285-295) mOsm/k g Lactate (0.5-2.2) mmol/L Calcium (8.5-10.5) mg/dL Total Bilirubin (0.15-1.2) mg/dL AST (0-32) U/L ALT (0-33) U/L Alkaline Phosphata se (35-105) IU/L Troponin T Baselin e (0-10) ng/L Troponin T 120 Min [place] 117.7 H Delta Troponin T 61.7 H* NT-Pro-B Natriuret Pep (0-450) pg/mL Total Protein (6.6-8.7) g/dL Albumin (3.5-5.2) g/dL Globulin (1.3-4.6) g/dL SARS-CoV-2 Ag (Rap id) (Negative) Discharge Plan Discharge Patient Disposition: Left Against Medical Advice Clinical Impression: Elevated troponin, Acute exacerbation of chronic obstructive pulmonary disease Condition: Stable Prescriptions: New Medrol (Ruddy) 4 mg tablets,dose pack See Rx Instructions .ROUTE .COMPLEX Qty: 21 RF: 0 azithromycin 250 mg tablet 250 mg PO DAILY 4 Days Qty: 4 RF: 0 albuterol sulfate 90 mcg/actuation HFA aerosol inhaler 2 inh inhalation Q6H PRN (Reason: shortness of breath or wheezing) Qty: 8.5 RF: 0 No Action furosemide [Lasix] 20 mg tablet 10 - 20 mg PO QAM PRN (Reason: swelling) RF: 0 fluticasone propionate 50 mcg/actuation spray,suspension 1 - 2 spray INTRANASAL PRN RF: 0 glimepiride 1 mg tablet 1 mg PO QAM RF: 0 cholecalciferol (vitamin D3) 25 mcg (1,000 unit) capsule 1,000 unit PO DAILY RF: 0 fenofibrate 54 mg tablet 54 mg PO DAILY Qty: 90 RF: 3 lisinopril 10 mg tablet 10 mg PO DAILY Qty: 90 RF: 3 simvastatin 40 mg tablet 40 mg PO DAILY Qty: 90 RF: 3 hydrocodone-acetaminophen 5-325 mg tablet 1 - 2 tab PO Q4H PRN (Reason: Pain) RF: 0 benzonatate 100 mg capsule 100 - 200 mg PO TID MDD not picked up from pharmacy PRN (Reason: Cough) RF: 0 aspirin 81 mg tablet,delayed release (DR/EC) 162 mg PO QPM RF: 0 morphine 15 mg tablet extended release 15 mg PO Q12H RF: 0 Tylenol Extra Strength 500 mg Tablet 500 - 1,000 mg PO PRN RF: 0 Ot[facility] Cough Med See Rx Instructions .ROUTE .COMPLEX RF: 0 metoprolol tartrate 25 mg tablet 25 mg PO BID RF: 0 Referrals: Mary Tian DO [Primary Care Provider] - Coding Level of Care Code ED Assignment Agent for Manjeet Jackman
== END 2020-05-30 19:09 | disposition left against medical advice (07) ==
PROVIDERS: Emergency Provider Family Medicine; PCP Family Medicine
DX: J44.1 Chronic obstructive pulmonary disease with (acute) exacerbation (principal); R77.8 Other specified abnormalities of plasma proteins; Z79.82 Long term (current) use of aspirin; Z79.84 Long term (current) use of oral hypoglycemic drugs; Z85.3 Personal history of malignant neoplasm of breast; E11.9 Type 2 diabetes mellitus without complications; I10 Essential (primary) hypertension; E78.2 Mixed hyperlipidemia; F17.210 Nicotine dependence, cigarettes, uncomplicated; Z53.21 Procedure and treatment not carried out due to patient leaving prior to being seen by health care provider
CPT/HCPCS: 36415; 36416; 36600; 71045; 71275; 80053; 82805; 82962; 83605; 83880; 84484; 85025; 85378; 87040; 87426; 93005; 94640; 96374; 99284; J2930; Q0144; Q9967

== ENCOUNTER 2020-06-05 06:17 | Outpatient (CLI) | payer MEDICARE, OTHER, SELFPAY ==
[2020-06-05 12:49] LABS: Hematocrit 30.8 % (37.0-47.0); Mean Corpuscular HGB Conc 32.5 g/dL (30.0-36.0); Mean Corpuscular Hemoglobin 31.6 pg (28.0-34.0); Mean Corpuscular Volume 97.5 fL (81-99); Mean Platelet Volume 9.9 fL (7.4-10.4); Platelet Count 416 10^3/cmm (130-400); Red Blood Count 3.16 10^6/uL (4.1-5.3); Red Cell Distribution Width 16.4 % (12.1-15.1); White Blood Count 12.2 10^3/uL (4.0-10.0)
[2020-06-05 13:12] LABS: Alanine Aminotransferase 8 U/L (0-33); Albumin Level 3.5 g/dL (3.5-5.2); Alkaline Phosphatase 65 IU/L (35-105); Anion Gap 13.3 (5-19); Aspartate Amino Transferase 12 U/L (0-32); Blood Urea Nitrogen 20 mg/dL (8-23); Calcium 8.6 mg/dL (8.5-10.5); Carbon Dioxide 33 mmol/L (22-29); Chloride 91 mmol/L (98-107); Globulin 2.8 g/dL (1.3-4.6); Glucose 78 mg/dL (65-115); Magnesium 1.4 mg/dL (1.7-2.3); Osmolality Calculated 279 mOsm/kg (285-295); Potassium 3.3 mmol/L (3.5-5.1); Sodium 134 mmol/L (136-145); Total Bilirubin 0.3 mg/dL (0.15-1.2); Total Protein 6.3 g/dL (6.6-8.7)
[2020-06-05 13:43] LABS: Absolute Segmented Neutrophil 9.2 10/cmm (1.6-7.1); Lymphocytes 18 %; Monocytes Absolute 0.9 10^3/cmm (0.1-0.6); Platelet Estimate Increased (Normal); Segmented Neutrophils 75 %; Total Cells Counted 100 (0-100)
--- NOTE | 2020-06-05 16:31 | ONC FU_ITS ---
Dr. Scott follow up note Patient: Victoria Villa Unit #: [id number]: 1940 Dicatated By: Kim Scott M.D.Date of Visit:Jun 05, 2020 Onc Med Follow-up/Prog Note History of Present Illness: Ms. Victoria Villa, is a 80-year-old female with history of progressive shortness of breath, Underwent chest x-ray which was abnormal So underwent CT scan of chest on December 29, 2019 which showed numerous bilateral pulmonary nodules with the largest identified in the left lower lobe measuring 1.5 cm and a large subcarinal lymph node measuring 2.3 x 4 cm and fullness in the superior mediastinum to the right of midline may represent adenopathy. And also seen a coarsely calcified left thyroid nodule measuring 2.5 x 3.0 x 2.9 cm no hepatic abnormality mentioned subsequently patient underwent CT PET scan on January 06, 2020 which showed 2 lateral right breast solid nodules measuring 1.2 and 1.3 cm with SUV up to 5.1 and there is bilateral clusters of lymph nodes in the cervical level 3 and 4 and supraclavicular territories with SUV up to 12.5 on the right and 10.8 on the left. There are multiple bilateral pulmonary nodules with FDG activity consistent with metastatic disease. The index nodule in the posterior left lower lobe measuring 1.4 cm SUV of 8.4. There is a paratracheal subaortic subcarinal and bilateral hilar lymphadenopathy and dominant lymph node in the subcarinal territory measuring 3.1 x 4.2 cm with SUV of 20. There is intense activity in the fundus and the body of stomach which may be physiological or malignant. And left thyroid lobe calcified nodule has SUV of 7.1, strongly suggesting malignancy., Patient was referred to surgery for evaluation patient underwent mammogram on January 22, 2020 which showed 2 solid lesions in the right breast, 1 at 9 o'clock position and another one at 10 o'clock position on January 23, 2020 she underwent ultrasound-guided right breast biopsy x2 and pathology report came back mass at 10 o'clock position showed moderately differentiated invasive ductal carcinoma and mass at 9 o'clock position also showed moderately differentiated invasive ductal carcinoma prognostic profile???confirmed ER positive, 99% and MO negative, HER-2/bin negative. Ki-67 4% Patient never had colonoscopy or EGD before, smokes about 2 packs a day for more than 50 years. Denies any history of dysphagia, denies any history of hemoptysis or hematemesis, denies any history of nausea vomiting, denies any fever chills, denies any bony pains, denies any mental status changes, denies any weight loss but now with progressive mild to moderate shortness of breath on exertion, fatigue for the last couple of months. As well CT PET scan showed increased uptake in thyroid as well as extensive bilateral cervical lymphadenopathy/supraclavicular lymphadenopathy, bilateral pulmonary nodules with FDG activity and paratracheal subaortic and bilateral hilar lymphadenopathy and left thyroid lobe calcified nodule with SUV of 7.1, she was referred to ENT Dr. 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 Underwent excisional biopsy of right supraclavicular neck mass on April 16, 2020 shows metastatic squamous cell carcinoma, PD-L1, CPS more than 1 Guardant 360 positive for NRAS Q61K (Trametinib,binimetinib) and BRAF amplification (regorafinib ,sorefinib ,trametinib,binimetinib) Came for follow-up, complaining of generalized weakness and fatigue, poor oral intake because of poor taste, no dysphagia, no mouth sores, no thrush, no hemoptysis or hematemesis, no shortness of breath at rest but dyspnea on exertion. Patient was supposed to start Keytruda last week on May 30, 2020 but at that time patient developed cough and then hypoxia, at that time, Keytruda infusion was not started and she was sent to [facility] for evaluation which she had CTA chest done which showed no evidence of pulmonary embolism, numerous nodules throughout the lungs which are probably metastatic, subcarinal right hilar lymphadenopathy, calcified left thyroid nodule. Liver and bone shows no metastatic disease., Her lab work-up shows potassium was 2.8 and her glucose was 34 and O2 sat was 70% on room air and with 3 L her saturation improved to mid 90s., As per patient this is not new to her and in the past anytime she developed cough and shortness of breath usually respond well to salt at home Medications: 24HR Allergy Relief 1 Tablet (of 180 mg) Oral daily PRN, Aspirin Adult Low Dose 1 Tablet (of 81 mg) Tablet, enteric coated Oral daily, Cholecalciferol (25 mcg ) Oral daily, Fenofibrate 1 Tablet (of 54 mg) Oral daily, Flonase 1 [place](s) (of 50 mcg/act) Suspension Nasal daily, Glimepiride 1 Tablet (of 1 mg) Oral daily, HYDROcodone-Acetaminophen 1 - 2 Tablet (of 5-325 mg) Oral q 4 hours for 6 hours PRN, Lisinopril 1 Tablet (of 20 mg) Oral daily, LORazepam (0.25 mg) Tablet Oral four times a day, Metoprolol Tartrate 1 Tablet (of 25 mg) Oral b.i.d., Simvastatin 1 Tablet (of 40 mg) Oral daily Allergies: Penicillins Review of Systems: Review of Systems is not available for this patient. Vital Signs: Performed on Jun 05, 2020 13:42 Height - 64.00 in Weight - 141.6 lbs (LOW) BSA - 1.69 sq.m BMI - 24.31 Temperature - 95.4 F (LOW) Pulse - 110 /min (HIGH) Respiration - 18 /min BP - 75/48 mm(hg) (LOW) O2 Sat - 92 % (LOW) Pain - 0 Fatigue - 5 Performance Status: 2 - Ambulatory/capable of all self-care, unable to perform any work activities. Up and about more than 50% of waking hours. (ECOG) Physical Examination: Hematologic/Lymphatic - Bilateral supraclavicular/cervical lymphadenopathy, stable, Respiratory - Lungs are clear to auscultation, Cardiovascular - Regular rate and rhythm of heart, Gastrointestinal - Soft, bowel sounds present, Extremities - No visible edema. Lab/Imaging: Test performed on May 30, 2020 10:20 Magnesium 1.1 mg/dL Sodium 136 mmol/L TSH 0.59 uIU/mL Potassium 2.8 mmol/L Chloride 96 mmol/L CO2 29 mmol/L Anion Gap 13.8 BUN 18 mg/dL Creatinine 0.9 mg/dL Cr Clearance (Est) 57.8500 mL/min Glucose 35 mg/dL Osmolality - Calculated 280 mOsm/kg Calcium 7.8 mg/dL Protein, Total 5.7 g/dL Albumin 2.9 g/dL Globulin 2.8 g/dL Bilirubin, Total 0.3 mg/dL ALT (SGPT) 6 U/L AST (SGOT) 16 U/L Alkaline Phosphatase 78 IU/L WBC 9.9 10 3/uL RBC 3.02 10 6/uL HGB 9.5 g/dL HCT 29.8 % MCV 98.7 fL MCH 31.5 pg MCHC 31.9 g/dL RDW 16.6 % Platelet Count 328 10 3/cmm MPV 10.2 fL Neutrophils 8.27 10 3/uL Lymphocytes 0.9 10 3/uL Monocytes 0.6 10 3/uL Eosinophils 0.1 10 3/uL Basophils 0.0 10 3/uL Neutrophil % 83.9 % Lymphocyte % 8.8 % Monocyte % 5.9 % Eosinophil % 0.7 % Basophils % 0.3 % NRBC % 0 % Test performed on Mar 12, 2020 10:00 Ferritin 50 ng/mL Iron 30 mcg/dL Vitamin B12 421 pg/mL Iron Binding Capacity (TIBC) 319 mcg/dl % Iron Saturation 9.4 % UIBC 289 mcg/dL Retic Count % 1.7600 % Impression: Squamous cell carcinoma per right supraclavicular lymph node biopsy done on April 17, 2019, PD-L1 testing shows CPS more than 1, guardant 360+ for NRAS, BRAF amplification 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 And coarsely calcified left thyroid nodule measuring 2.5 x 3 cm and no hepatic abnormality mentioned CT PET scan done on January 06, 2020 showed FDG positive right breast nodules Intense proximal gastric activity, gastric wall thickening could be physiologic further evaluation recommended Bilateral FDG positive cervical and supraclavicular lymph nodes consistent with metastatic disease Calcified left thyroid nodule is FDG positive likely malignant Bilateral malignant pulmonary nodules Extensive malignant mediastinal lymphadenopathy. Longstanding history of smoking 2 packs a day for more than 50 years, still active History of colonoscopy done in 2017, History of arterial bypass of lower limb. History of coronary artery disease status post stent Plan: Discussed with patient regarding her labs white blood count 12.2 hemoglobin 10 hematocrit 38.8 platelets 416,000 CMP within normal limit except potassium 3.3 creatinine 1.1 BUN 20 glucose 78 magnesium 1.4 Clinically, patient is doing reasonably well, appears dehydrated due to poor oral intake and diuretics, at this point patient was advised to hold diuretics and will give her gentle hydration with normal saline 500 cc along with potassium 20 mEq and 1 g mag sulfate over 2 hours, her blood pressure was 75/48 with pulse 110 indicating dehydration. We will monitor her blood pressure during IV fluid infusion. Patient was advised to start Keytruda today but she is reluctant rather wants to postpone till Wednesday knowing the risk involved with delaying the treatment. As far as breast cancer is concerned, definitive surgery was postponed because of patient was diagnosed with extensive and more aggressive squamous cell carcinoma involving supraclavicular area and no probably bilateral lung nodules and hilar lymphadenopathy, so we will start her on Arimidex 1 mg p.o. daily while treating her metastatic squamous cell carcinoma with immunotherapy with Keytruda as the tumor showed PD-L1 positive status and if she responded well to immunotherapy then will consider either lumpectomy or simple mastectomy for her breast cancer. All the side effect possible benefits associated with Arimidex were mentioned further teaching done by chemotherapy nurse. Patient return to clinic in 1 week with CBC CMP to ensure no further drop in her hemoglobin as well as electrolytes in normal range and will consider starting her on Keytruda. Patient was encouraged to maintain hydration and was offered any assistance she may need. We will also evaluate her for home health. Signed By: Kim Scott M.D. <<Signature on File>>
== END 2020-06-05 06:18 | disposition home or self-care (01) ==
PROVIDERS: PCP Family Medicine; Visit Provider Internal Medicine Hematology & Oncology
DX: C50.811 Malignant neoplasm of overlapping sites of right female breast (principal); Z17.0 Estrogen receptor positive status [ER+]; C77.8 Secondary and unspecified malignant neoplasm of lymph nodes of multiple regions; C78.01 Secondary malignant neoplasm of right lung; C78.02 Secondary malignant neoplasm of left lung; C79.89 Secondary malignant neoplasm of other specified sites; F17.210 Nicotine dependence, cigarettes, uncomplicated; I25.10 Atherosclerotic heart disease of native coronary artery without angina pectoris; Z95.5 Presence of coronary angioplasty implant and graft; Z79.899 Other long term (current) drug therapy
CPT/HCPCS: 36415; 80053; 83735; 85007; 85027; 96365; 96366; 99215; J3475; J3480; J7040